=== PATIENT | female | born 1970 | race Two or more races ===

== ENCOUNTER 2016-05-21 21:40 | Emergency (ER) | payer OTHER ==
[~2016-05-21 21:40] MED LIST: BUTA1CAP29 PO; GEMF600T PO; INSU100I17 SQ; INSU100V13 SQ; ONDA4TAB10 PO; PROM25TA10 PO; SUMA50TA3 PO
[2016-05-21 21:53] VITALS: BP 167/91
--- NOTE | 2016-05-21 22:37 | PHYS DOC ---
Past Medical History Past Medical History: Diabetes-Type II, Migraines Additional Past Medical Histor: HEADACHES Past Surgical History: No Surgical History, Appendectomy Additional Past Surgical Histo: KIDNEY STONE Alcohol Use: None Drug Use: None Adult General Chief Complaint Chief Complaint: HEADACHE HPI HPI Patient is a 46 year old female who presents with complaint of headache this started this morning upon awakening. Patient states she has history of migraine headaches. Patient states that her current headache is consistent with previous episodes of migraine headache. Patient states she last had a migraine 3 days ago and was seen by her primary doctor. The patient received injection medication at that time that helped, however her symptoms unfortunately return today. Patient took ibuprofen earlier today with no relief in symptoms. Patient has had associated nausea and vomiting which is typical of her migraine headaches. Patient rates her pain currently is 10 out of 10. Patient denies any additional or unusual symptoms associated with her headache at this time. Review of Systems Review of Systems Constitutional: Denies fever or chills [] Eyes: Denies change in visual acuity, redness, or eye pain [] HENT: Denies nasal congestion or sore throat [] Respiratory: Denies cough or shortness of breath [] Cardiovascular: Denies chest pain or edema [] GI: Nausea, vomiting, denies abdominal pain, bloody stools or diarrhea [] : Denies dysuria or hematuria [] Musculoskeletal: Denies back pain or joint pain [] Integument: Denies rash or skin lesions [] Neurologic: Headache, denies focal weakness or sensory changes [] Current Medications Current Medications Current Medications Medications (Trade) Dose Ordered Sig/Ministerio Start Time Stop Time Status Last Admin Dose Admin Ketorolac Tromethamine (Toradol Im) 60 mg 1X ONCE 05/21/16 23:00 05/21/16 23:01 DC 05/21/16 22:50 60 MG Promethazine HCl (Phenergan Im) 25 mg 1X ONCE 05/21/16 23:00 05/21/16 23:01 DC 05/21/16 22:50 25 MG Allergies Allergies Allergies Coded Allergies Type Severity Reaction Last Updated Verified No Known Drug Allergies 04/01/15 No Physical Exam Physical Exam Constitutional: Alert, afebrile, appears in mild to moderate discomfort. [] HENT: Normocephalic, atraumatic, bilateral external ears normal, oropharynx moist, no oral exudates, nose normal. [] Eyes: PERRLA, EOMI, conjunctiva normal, no discharge. [] Neck: Normal range of motion, no tenderness, supple, no stridor. [] Cardiovascular:Heart rate regular rhythm, no murmur [] Lungs & Thorax: Bilateral breath sounds clear to auscultation [] Abdomen: Bowel sounds normal, soft, no tenderness, no masses, no pulsatile masses. [] Skin: Warm, dry, no erythema, no rash. [] Back: No tenderness, no CVA tenderness. [] Extremities: No tenderness, no cyanosis, no clubbing, ROM intact, no edema. [] Neurologic: Alert and oriented X 3, normal motor function, normal sensory function, no focal deficits noted. [] Current Patient Data Vital Signs Vital Signs Date Time Temp Pulse Resp B/P Pulse Ox O2 Delivery O2 Flow Rate FiO2 05/21/16 21:53 97.8 70 18 167/91 100 97.8 EKG EKG Not performed [] Radiology/Procedures Radiology/Procedures Not performed [] Course & Med Decision Making Course & Med Decision Making Pertinent Labs and Imaging studies reviewed. (See chart for details) Patient was given IM Phenergan and IM Toradol in the emergency department. On reevaluation, patient states her headache has improved. The patient was discharged with prescription for Phenergan and advised to continue on ibuprofen and Tylenol at home for treatment of headache. Advised return emergency department for any worsening symptoms. The patient and patient's family voiced understanding and in agreement with treatment plan. Dragon Disclaimer Dragon Disclaimer This electronic medical record was generated, in whole or in part, using a voice recognition dictation system. Departure Departure Impression: Primary Impression: Migraine Disposition: 01 HOME, SELF-CARE Condition: IMPROVED Referrals: DENG ROOT MD (PCP) Patient Instructions: Migraine Headache Additional Instructions: Follow-up with primary doctor in 2-3 days. Return to emergency department for any worsening symptoms. Scripts Promethazine Hcl 25 Mg Tablet1 Tab PO Q6HRS PRN NAUSEA/VOMITING #20 TAB Prov:FABI LEIGH MD 05/21/16 Problem Qualifiers Primary Impression: Migraine Migraine type: unspecified Status migrainosus presence: without status migrainosus Intractability: not intractable Qualified Code: G43.909 - Migraine, unspecified, not intractable, without status migrainosus FABI LEIGH MD 30, 2017 22:37
[2016-05-21] MEDS ORDERED: KETOROLAC TROMETHAMINE 60 MG/2 ML SYRINGE. IM ONE (23:00)
[2016-05-21] MEDS ORDERED: PROMETHAZINE IM 25 MG/ML VIAL IM ONE (23:00)
[2016-05-21] MEDS ORDERED: PROM25TA10 PO (23:31)
== END 2016-05-21 23:35 | disposition home or self-care (01) ==
LOC: ER 21:40
DX: G43.909 Migraine, unspecified, not intractable, without status migrainosus (principal); E11.9 Type 2 diabetes mellitus without complications
CPT/HCPCS: 96372; 99284; J1885; J2550

== ENCOUNTER 2016-06-12 19:39 | Emergency (ER) | payer OTHER ==
[2016-06-12] MEDS ORDERED: PROMETHAZINE 12.5 MG in IV NORMAL SALINE 50ML 50 ML IV ONE (20:45)
[2016-06-12] MEDS ORDERED: IV NORMAL SALINE 1000ML BAG 1,000 ML IV ONE (20:45)
[2016-06-12] MEDS ORDERED: KETOROLAC TROMETHAMINE 30 MG/ML INJ. IV ONE (21:00)
[2016-06-12] MEDS ORDERED: DIPHENHYDRAMINE 50 MG/ML VIAL. IVP ONE (21:00)
[2016-06-12] MEDS ORDERED: SUMA50TA3 PO (21:41)
[2016-06-12] MEDS ORDERED: PROM25TA10 PO (21:41)
--- NOTE | 2016-06-12 21:42 | PHYS DOC ---
Past Medical History Past Medical History: Diabetes-Type II, Migraines Additional Past Medical Histor: HEADACHES Past Surgical History: Appendectomy Additional Past Surgical Histo: KIDNEY STONE Alcohol Use: None Drug Use: None Adult General Chief Complaint Chief Complaint: HEADACHE HPI HPI Patient is a 46 year old female with history of diabetes type 2 and migraine headaches who presents today with a 10 out of 10 sharp frontal migraine headache that began this morning with nausea and vomiting. Patient denies this pain being the worst headache in her life. She states she's had similar headaches before. Patient is Vietnamese speaking but understands some Romansh and family member is in the ED interpreting. Review of Systems Review of Systems Constitutional: Denies fever or chills [] Eyes: Denies change in visual acuity, redness, or eye pain [] HENT: Denies nasal congestion or sore throat [] Respiratory: Denies cough or shortness of breath [] Cardiovascular: No additional information not addressed in HPI [] GI: Denies abdominal pain, nausea, vomiting, bloody stools or diarrhea [] : Denies dysuria or hematuria [] Musculoskeletal: Denies back pain or joint pain [] Integument: Denies rash or skin lesions [] Neurologic: headache, Endocrine: Denies polyuria or polydipsia [] Current Medications Current Medications Current Medications Medications (Trade) Dose Ordered Sig/Ministerio Start Time Stop Time Status Last Admin Dose Admin Diphenhydramine HCl 25 mg 25 mg 1X ONCE 06/12/16 21:00 06/12/16 21:01 DC 06/12/16 21:18 25 MG Ketorolac Tromethamine 30 mg 30 mg 1X ONCE 06/12/16 21:00 06/12/16 21:01 DC 06/12/16 21:20 30 MG Promethazine HCl/ Sodium Chloride (Phenergan/Iv Sodium Chloride 0.9% 50ml) 50.5 ml @ 101 mls/hr 1X ONCE 06/12/16 20:45 06/12/16 21:14 DC 06/12/16 21:21 101 MLS/HR Sodium Chloride (Iv Sodium Chloride 0.9% 1000ml Bag) 1,000 ml @ 1,000 mls/hr 1X ONCE 06/12/16 20:45 06/12/16 21:44 06/12/16 21:18 1,000 MLS/HR Allergies Allergies Allergies Coded Allergies Type Severity Reaction Last Updated Verified No Known Drug Allergies 04/01/15 No Physical Exam Physical Exam Constitutional: Well developed, well nourished, no acute distress, non-toxic appearance. [] HENT: Normocephalic, atraumatic, bilateral external ears normal, oropharynx moist, no oral exudates, nose normal. [] Eyes: PERRLA, EOMI, conjunctiva normal, no discharge. [] Neck: Normal range of motion, no tenderness, supple, no stridor. [] Cardiovascular:Heart rate regular rhythm, no murmur [] Lungs & Thorax: Bilateral breath sounds clear to auscultation [] Abdomen: Bowel sounds normal, soft, no tenderness, no masses, no pulsatile masses. [] Skin: Warm, dry, no erythema, no rash. [] Back: No tenderness, no CVA tenderness. [] Extremities: No tenderness, no cyanosis, no clubbing, ROM intact, no edema. [] Neurologic: Alert and oriented X 3, normal motor function, normal sensory function, no focal deficits noted. Cranial nerves II through XII intact Psychologic: Affect normal, judgement normal, mood normal. [] Current Patient Data Vital Signs Vital Signs Date Time Temp Pulse Resp B/P Pulse Ox O2 Delivery O2 Flow Rate FiO2 06/12/16 21:17 68 16 152/85 99 06/12/16 19:54 97.9 Room Air 97.9 EKG EKG [] Radiology/Procedures Radiology/Procedures [] Course & Med Decision Making Course & Med Decision Making Pertinent Labs and Imaging studies reviewed. (See chart for details) Patient is in the ED with a migraine headache with nausea vomiting that began this morning. She was given promethazine, Benadryl and Toradol in the ED with very good relief. Discharged with Imitrex and promethazine. Follow-up with PCP on Wednesday. Provided return precautions and discharged in stable condition. Dragon Disclaimer Dragon Disclaimer This electronic medical record was generated, in whole or in part, using a voice recognition dictation system. Departure Departure Impression: Primary Impression: Migraine headache Disposition: HOME, SELF-CARE Condition: STABLE Referrals: DENG ROOT MD (PCP) Follow-up with your doctor on Wednesday Patient Instructions: Migraine Headache Additional Instructions: You were seen for migraine headache. Take the prescribed medicines as needed. Follow-up with your doctor on Wednesday as scheduled. Come back to the ED symptoms worsen. Scripts Sumatriptan Succinate (Imitrex)50 Mg Tablet1 Tab PO UD #9 TAB Ref 1 Prov:OCTAVIO HURT APRN 06/12/16 Promethazine Hcl 25 Mg Tablet1 Tab PO PRN Q6HRS #20 TAB Prov:OCTAVIO HURT APRN 06/12/16 Problem Qualifiers Primary Impression: Migraine headache Migraine type: without aura Status migrainosus presence: without status migrainosus Intractability: not intractable Qualified Code: G43.009 - Migraine without aura, not intractable, without status migrainosus OCTAVIO HURT APRN Jun 12, 2016 21:42
[2016-06-12 22:16] VITALS: BP 136/77
== END 2016-06-12 22:17 | disposition home or self-care (01) ==
LOC: ER 19:39
DX: G43.909 Migraine, unspecified, not intractable, without status migrainosus (principal); E11.9 Type 2 diabetes mellitus without complications
CPT/HCPCS: 96365; 96375; 99284; J1200; J1885; J2550; J7030

== ENCOUNTER 2016-08-09 22:20 | Emergency (ER) | payer OTHER ==
[~2016-08-09] VITALS: Ht 157.5 cm; Wt 70.3 kg
[2016-08-09 23:32] VITALS: BP 134/80
[2016-08-09] MEDS ORDERED: PROCHLORPERAZINE 10 MG/2 ML VIAL. IV ONE (23:45)
[2016-08-09] MEDS ORDERED: IV NORMAL SALINE 1000ML BAG 1,000 ML IV ONE (23:45)
[2016-08-09] MEDS ORDERED: KETOROLAC TROMETHAMINE 30 MG/ML INJ. IV ONE (23:45)
[2016-08-09] MEDS ORDERED: diphenhydrAMINE 50 MG/ML VIAL IVP ONE (23:45)
[2016-08-10 00:07] LABS: BILIRUBIN,URINE NEGATIVE (NEG); GLUCOSE,URINE >=1000 mg/dL (NEG); NITRITE,URINE NEGATIVE (NEG); PH,URINE 5.5; PROTEIN,URINE >=300 mg/dL (NEG-TRACE); UROBILINOGEN,URINE 0.2 mg/dL (0.2 mg/dL)
[2016-08-10 00:26] LABS: BACTERIA,URINE FEW /HPF (0-FEW); RBC,URINE TNTC /HPF (0-2); SQUAMOUS EPITHELIAL CELL,UR FEW /LPF; WBC,URINE OCC /HPF (0-4)
--- NOTE | 2016-08-10 01:24 | PHYS DOC ---
Past Medical History Past Medical History: Diabetes-Type II, Migraines Additional Past Medical Histor: HEADACHES Past Surgical History: Appendectomy Additional Past Surgical Histo: KIDNEY STONE Alcohol Use: None Drug Use: None Adult General Chief Complaint Chief Complaint: HEADACHE HPI HPI Patient is a 46 year old female who presents with headache. The patient reports she woke up this morning with throbbing/aching frontal headache typical of her usual migraine. She states pain did not improve with "migraine medication" prescribed by her doctor, unsure of the name of medication. She reports photophobia/phonophobia, nausea. Denies fevers/chills, neck stiffness, vomiting, vision changes, extremity numbness/weakness. She has history of previous ED visit for migraine. She is Frisian speaking, son speaks Dominican, is present at bedside & assisting with history. Review of Systems Review of Systems Constitutional: Denies fever or chills Eyes: Denies change in visual acuity HENT: Denies nasal congestion or sore throat Respiratory: Denies cough or shortness of breath Cardiovascular: Denies chest pain or edema GI: Reports nausea. Denies abdominal pain, vomiting, bloody stools or diarrhea : Denies dysuria or hematuria Musculoskeletal: Denies back pain or joint pain Integument: Denies rash or skin lesions Neurologic: Reports headache, denies focal weakness or sensory changes Current Medications Current Medications Current Medications Medications (Trade) Dose Ordered Sig/Ministerio Start Time Stop Time Status Last Admin Dose Admin Diphenhydramine HCl (Benadryl) 25 mg 1X ONCE 08/09/16 23:45 08/09/16 23:46 DC 08/10/16 00:03 25 MG Ketorolac Tromethamine (Toradol) 30 mg 1X ONCE 08/09/16 23:45 08/09/16 23:46 DC 08/10/16 00:03 30 MG Prochlorperazine Edisylate (Compazine) 10 mg 1X ONCE 08/09/16 23:45 08/09/16 23:46 DC 08/10/16 00:03 10 MG Sodium Chloride 1,000 ml @ 1,000 mls/hr 1X ONCE 08/09/16 23:45 08/10/16 00:44 DC 08/09/16 00:03 1,000 MLS/HR Allergies Allergies Allergies Coded Allergies Type Severity Reaction Last Updated Verified No Known Drug Allergies 04/01/15 No Physical Exam Physical Exam Constitutional: Well developed, well nourished, no acute distress, non-toxic appearance. Resting comfortably in a dark room. HENT: Normocephalic, atraumatic, bilateral external ears normal, oropharynx moist, no tonsillar enlargement/exudate, nose normal. Eyes: PERRLA, EOMI, conjunctiva normal, no discharge. Neck: supple, no stridor. no nuchal rigidity Cardiovascular: RRR, no murmurs, no edema. Lungs & Thorax: LCTAB, no wheezing, no respiratory distress. Abdomen: soft, nontender, nondistended. Skin: Warm, dry, no erythema, no rash. Back: No tenderness. Extremities: No tenderness, no edema. Neurologic: Alert and oriented X 3, CN2-12 grossly intact, symmetric strength/ sensation to UE & LE, no focal deficits noted. Psychologic: Affect normal, judgement normal, mood normal. Current Patient Data Vital Signs Vital Signs Date Time Temp Pulse Resp B/P (MAP) Pulse Ox O2 Delivery O2 Flow Rate FiO2 08/09/16 23:32 98.1 85 16 99 Room Air 98.1 Lab Values Laboratory Tests Test 08/09/16 23:03 08/09/16 23:45 POC Urine HCG, Qualitative Hcg negative (Negative) Urine Collection Type Unknown Urine Color Yellow Urine Clarity Clear Urine pH 5.5 Urine Specific [place] >=1.030 Urine Protein >=300 mg/dL (NEG-TRACE) Urine Glucose (UA) >=1000 mg/dL (NEG) Urine Ketones (Stick) 15 mg/dL (NEG) Urine Blood Large (NEG) Urine Nitrite Negative (NEG) Urine Bilirubin Negative (NEG) Urine Urobilinogen Dipstick 0.2 mg/dL (0.2 mg/dL) Urine Leukocyte Esterase Negative (NEG) Urine RBC Tntc /HPF (0-2) Urine WBC Occ /HPF (0-4) Urine Squamous Epithelial Cells Few /LPF Urine Bacteria Few /HPF (0-FEW) Urine Hyaline Casts Occasional /HPF Urine Mucus Slight /LPF EKG EKG [] Radiology/Procedures Radiology/Procedures [] Course & Med Decision Making Course & Med Decision Making Pertinent Labs and Imaging studies reviewed. (See chart for details) The patient presents with migraine headache with typical symptoms. Gave IV fluids, toradol, benadryl, compazine. She felt better after treatment, requested discharge home. Recommend rest, PO hydration, continue home meds, follow up with primary care this week. Come back for worst headache of life, sudden onset severe headache, uncontrolled vomiting, focal neuro deficit, any otherwise worsening condition. Discharged home in stable & improved condition. [] Dragon Disclaimer Dragon Disclaimer This electronic medical record was generated, in whole or in part, using a voice recognition dictation system. Departure Departure Impression: Primary Impression: Migraine headache Disposition: HOME, SELF-CARE Condition: IMPROVED Referrals: DENG ROOT MD (PCP) Patient Instructions: Migraine Headache, [id number] Additional Instructions: You were seen in the emergency department today for migraine. Symptoms improved with treatment here. Please rest, drink fluids, take home medications as needed. Follow-up with primary care physician in one week. Return to the emergency department for worst headache of your life, sudden onset severe headache, uncontrolled vomiting, trouble moving arms or legs, any otherwise worsening condition. LAZARO DRAKE MD Aug 10, 2016 01:24
== END 2016-08-10 01:38 | disposition home or self-care (01) ==
LOC: ER 22:20
DX: G43.909 Migraine, unspecified, not intractable, without status migrainosus (principal); E11.9 Type 2 diabetes mellitus without complications; Z90.49 Acquired absence of other specified parts of digestive tract; Z87.442 Personal history of urinary calculi
CPT/HCPCS: 81001; 81025; 96361; 96374; 96375; 99285; J0780; J1200; J1885; J7030

== ENCOUNTER 2016-09-08 22:46 | Emergency (ER) | payer OTHER ==
[~2016-09-08] VITALS: Ht 162.6 cm; Wt 70.3 kg
[2016-09-08 23:30] LABS: BILIRUBIN,URINE NEGATIVE (NEG); GLUCOSE,URINE NEGATIVE (NEG); NITRITE,URINE NEGATIVE (NEG); PH,URINE 5.5; PROTEIN,URINE 30 mg/dL (NEG-TRACE); UROBILINOGEN,URINE 0.2 mg/dL (0.2 mg/dL)
[2016-09-08] MEDS ORDERED: KETOROLAC TROMETHAMINE 30 MG/ML INJ. IV ONE (23:30)
[2016-09-08] MEDS ORDERED: diphenhydrAMINE 50 MG/ML VIAL IVP ONE (23:30)
[2016-09-08] MEDS ORDERED: PROCHLORPERAZINE 10 MG/2 ML VIAL. IV ONE (23:30)
[2016-09-08] MEDS ORDERED: IV NORMAL SALINE 1000ML BAG 1,000 ML IV ONE (23:30)
[2016-09-08 23:39] LABS: BACTERIA,URINE MODERATE /HPF (0-FEW); RBC,URINE >40 /HPF (0-2); SQUAMOUS EPITHELIAL CELL,UR MOD /LPF
--- NOTE | 2016-09-09 01:03 | PHYS DOC ---
Past Medical History Past Medical History: Diabetes-Type II, Migraines Additional Past Medical Histor: HEADACHES Past Surgical History: Appendectomy Additional Past Surgical Histo: KIDNEY STONE Alcohol Use: None Drug Use: None Adult General Chief Complaint Chief Complaint: HEADACHE HPI HPI Patient is a 46 year old female who presents with migraine headache. She reports 1 day history of pain to the top of her head which is throbbing/aching. Not sudden in onset, not the worst headache of her life, typical of her usual migraine. She denies fevers/chills, neck stiffness, vision changes, photophobia /phonophobia, nausea, vomiting, extremity numbness/weakness. She took ibuprofen at home without relief. History of many previous visits for similar complaints. 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 Review of Systems Review of Systems Constitutional: Denies fever or chills Eyes: Denies change in visual acuity HENT: Denies nasal congestion or sore throat Respiratory: Denies cough or shortness of breath Cardiovascular: Denies chest pain GI: Denies abdominal pain, nausea, vomiting Musculoskeletal: Denies back pain or joint pain Integument: Denies rash Neurologic: Reports headache, denies focal weakness or sensory changes Current Medications Current Medications Current Medications Medications (Trade) Dose Ordered Sig/Ministerio Start Time Stop Time Status Last Admin Dose Admin Diphenhydramine HCl (Benadryl) 25 mg 1X ONCE 09/08/16 23:30 09/08/16 23:31 DC 09/08/16 23:31 25 MG Ketorolac Tromethamine (Toradol) 30 mg 1X ONCE 09/08/16 23:30 09/08/16 23:31 DC 09/08/16 23:31 30 MG Prochlorperazine Edisylate (Compazine) 10 mg 1X ONCE 09/08/16 23:30 09/08/16 23:31 DC 09/08/16 23:31 10 MG Sodium Chloride 1,000 ml @ 1,000 mls/hr 1X ONCE 09/08/16 23:30 09/09/16 00:29 DC 09/08/16 23:32 1,000 MLS/HR Allergies Allergies Allergies Coded Allergies Type Severity Reaction Last Updated Verified No Known Drug Allergies 04/01/15 No Physical Exam Physical Exam Constitutional: Well developed, well nourished, no acute distress, non-toxic appearance. HENT: Normocephalic, atraumatic, bilateral external ears normal, oropharynx moist, nose normal. Eyes: PERRLA, EOMI, conjunctiva normal, no discharge. Neck: supple, no stridor. no meningismus Cardiovascular: RRR, no murmurs, no edema. Lungs & Thorax: LCTAB, no wheezing, no respiratory distress. Abdomen: soft, nontender, nondistended. Skin: Warm, dry, no erythema, no rash. Back: No tenderness. Extremities: No tenderness, no edema. Neurologic: Alert and oriented X 3, CN2-12 grossly intact, symmetric strength/ sensation to UE & LE, no focal deficits noted. Psychologic: Affect normal, judgement normal, mood normal. Current Patient Data Vital Signs Vital Signs Date Time Temp Pulse Resp B/P (MAP) Pulse Ox O2 Delivery O2 Flow Rate FiO2 09/09/16 01:05 145/79 (101) 100 Room Air 09/08/16 23:22 98.0 72 16 98.0 Lab Values Laboratory Tests Test 09/08/16 22:26 09/08/16 23:06 POC Urine HCG, Qualitative Hcg negative (Negative) Urine Collection Type Unknown Urine Color Yellow Urine Clarity Clear Urine pH 5.5 Urine Specific [place] 1.020 Urine Protein 30 mg/dL (NEG-TRACE) Urine Glucose (UA) Negative mg/dL (NEG) Urine Ketones (Stick) Negative mg/dL (NEG) Urine Blood Large (NEG) Urine Nitrite Negative (NEG) Urine Bilirubin Negative (NEG) Urine Urobilinogen Dipstick 0.2 mg/dL (0.2 mg/dL) Urine Leukocyte Esterase Trace (NEG) Urine RBC >40 /HPF (0-2) Urine WBC 1-4 /HPF (0-4) Urine Squamous Epithelial Cells Mod /LPF Urine Bacteria Moderate /HPF (0-FEW) Urine Mucus Mod /LPF EKG EKG [] Radiology/Procedures Radiology/Procedures [] Course & Med Decision Making Course & Med Decision Making Pertinent Labs and Imaging studies reviewed. (See chart for details) Patient presents with migraine headache. Well appearing, stable vitals, normal neuro exam. Negative UCG. She has blood in her urine consistent with menstrual period which she reports. Gave IV fluids, compazine, benadryl, toradol. She felt better after treatment here. Recommend rest, PO hydration, tylenol/ibuprofen for headache, follow up with PCP in 2-3 days if not improving. Come back for worst headache of her life, sudden onset severe headache, focal neuro deficit, any otherwise worsening condition. Discharged home in stable & improved condition. [] Dragon Disclaimer Dragon Disclaimer This electronic medical record was generated, in whole or in part, using a voice recognition dictation system. Departure Departure Impression: Primary Impression: Migraine headache Disposition: HOME, SELF-CARE Condition: IMPROVED Referrals: DENG ROOT MD (PCP) Patient Instructions: Migraine Headache, [id number] Additional Instructions: You were seen in the emergency department today for headache. Please continue home treatment. Follow-up with primary care physician in 2-3 days. Come back for sudden severe headache, worst headache of your life, numbness or weakness in arms or legs, any otherwise worsening condition. LAZARO DRAKE MD Sep 09, 2016 01:03
[2016-09-09 01:05] VITALS: BP 145/79
== END 2016-09-09 01:16 | disposition home or self-care (01) ==
LOC: ER 22:46
DX: G43.909 Migraine, unspecified, not intractable, without status migrainosus (principal); E11.9 Type 2 diabetes mellitus without complications; Z90.49 Acquired absence of other specified parts of digestive tract; Z87.442 Personal history of urinary calculi
CPT/HCPCS: 81001; 81025; 87086; 96361; 96374; 96375; 99285; J0780; J1200; J1885; J7030

== ENCOUNTER 2016-09-11 22:29 | Emergency (ER) | payer OTHER ==
[~2016-09-11] VITALS: Ht 152.4 cm; Wt 68.0 kg
[2016-09-11 22:59] VITALS: BP 147/70
[2016-09-12] MEDS ORDERED: IBUP-1007 PO (00:27)
--- NOTE | 2016-09-12 00:27 | PHYS DOC ---
Past Medical History Past Medical History: Diabetes-Type II, Migraines Additional Past Medical Histor: HEADACHES Past Surgical History: Appendectomy Additional Past Surgical Histo: KIDNEY STONE Alcohol Use: None Drug Use: None Adult General Chief Complaint Chief Complaint: HEADACHE HPI HPI Patient is a 46 year old female who presents today complaining of a headache since 3 PM. Patient reports she's had similar headaches in the past. Patient reports usually she takes ibuprofen or Tylenol however she has run out of her ibuprofen did not take anything at all today. For headache. Patient presents here today complaining of pain to her head that's in the frontal area that is typical to her prior headaches. Patient has any fevers shakes chills nausea vomiting diarrhea. Patient denies any chest pain or shortness of breath. Patient has any abdominal pain. Patient reports that she's had a little bit of cough cold runny nose. Patient has a history of diabetes hypertension kidney stones and has had an appendectomy in the past. Patient does not smoke drink or do any drugs. Patient is not allergic to any medications. Patient denies any weakness or upper or lower 70s. Patient has any sensory deficits. Patient has any double vision or blurred vision. Patient says family reports no change in speech or facial asymmetries. Patient's physical exam the ER is unremarkable. Patient's alert awake and oriented 3. Patient has no papilledema. Patient's pupils were equally round and reactive to light. Extraocular motions were intact. Patient's cranial nerves to 12 are intact. Patient has good strength upper and lower extremities 5 out of 5. Liver clear. Patient's oropharynx are normal. Assessment and plan is a 46-year-old female who presents here today with a headache. Patient has not tried any remedies at home prior to arrival to the ER. Patient be given a dose of Toradol Benadryl and Reglan to assist her with her migraine. Patient be discharged home in stable condition. Patient was given a prescription for ibuprofen and will be instructed to follow-up with her primary care physician. Current Medications Medications (Trade) Dose Ordered Sig/Ministerio Route PRN Reason Start Time Stop Time Status Last Admin Dose Admin Ketorolac Tromethamine (Toradol) 15 mg 1X ONCE IV 09/12/16 00:30 09/12/16 00:31 Diphenhydramine HCl (Benadryl) 50 mg 1X ONCE IVP 09/12/16 00:30 7/22/17 00:31 Metoclopramide HCl (Reglan) 10 mg 1X ONCE IV 09/12/16 00:30 09/12/16 00:31 Review of Systems Review of Systems Constitutional: Denies fever or chills [] Eyes: Denies change in visual acuity, redness, or eye pain [] HENT: Denies nasal congestion or sore throat [] All other review systems are negative except as documented in the history of present illness portion. Current Medications Current Medications Current Medications Medications (Trade) Dose Ordered Sig/Ministerio Start Time Stop Time Status Last Admin Dose Admin Diphenhydramine HCl (Benadryl) 50 mg 1X ONCE 09/12/16 00:30 09/12/16 00:31 DC 09/12/16 00:31 50 MG Ketorolac Tromethamine (Toradol) 15 mg 1X ONCE 09/12/16 00:30 09/12/16 00:31 DC 09/12/16 00:31 15 MG Metoclopramide HCl (Reglan) 10 mg 1X ONCE 09/12/16 00:30 09/12/16 00:31 DC 09/12/16 00:31 10 MG Allergies Allergies Allergies Coded Allergies Type Severity Reaction Last Updated Verified No Known Drug Allergies 04/01/15 No Physical Exam Physical Exam Constitutional: Well developed, well nourished, no acute distress, non-toxic appearance. [] HENT: Normocephalic, atraumatic, bilateral external ears normal, oropharynx moist, no oral exudates, nose normal. [] Eyes: PERRLA, EOMI, conjunctiva normal, no discharge. [] Neck: Normal range of motion, no tenderness, supple, no stridor. [] Cardiovascular:Heart rate regular rhythm, Lungs & Thorax: Bilateral breath sounds clear to auscultation [] Abdomen: Bowel sounds normal, soft, no tenderness, no masses, no pulsatile masses. [] Skin: Warm, dry Back: No tenderness, no CVA tenderness. [] Extremities: No tenderness, no cyanosis, Neurologic: Alert and oriented X 3, normal motor function, normal sensory function, no focal deficits noted. [] Current Patient Data Vital Signs Vital Signs Date Time Temp Pulse Resp B/P (MAP) Pulse Ox O2 Delivery O2 Flow Rate FiO2 09/11/16 22:59 97.7 76 16 100 Room Air 97.7 EKG EKG [] Radiology/Procedures Radiology/Procedures [] Course & Med Decision Making Course & Med Decision Making Pertinent Labs and Imaging studies reviewed. (See chart for details) [] Dragon Disclaimer Dragon Disclaimer This electronic medical record was generated, in whole or in part, using a voice recognition dictation system. Departure Departure Impression: Primary Impression: Migraine headache Disposition: HOME, SELF-CARE Condition: STABLE Referrals: DENG ROOT MD (PCP) Patient Instructions: General Headache Without Cause Scripts Ibuprofen (IBUPROFEN) 600 Mg Tablet 600 MG PO PRN Q6HRS Y for PAIN, #20 TAB Prov: LIAT CHURCHILL MD 09/12/16 LIAT CHURCHILL MD Sep 12, 2016 00:27
[2016-09-12] MEDS ORDERED: KETOROLAC 15 MG/ML VIAL. IV ONE (00:30)
[2016-09-12] MEDS ORDERED: METOCLOPRAMIDE HCL 10 MG/2 ML VIAL. IV ONE (00:30)
[2016-09-12] MEDS ORDERED: diphenhydrAMINE 50 MG/ML VIAL IVP ONE (00:30)
== END 2016-09-12 01:22 | disposition home or self-care (01) ==
LOC: ER 22:29
DX: G43.909 Migraine, unspecified, not intractable, without status migrainosus (principal); E11.9 Type 2 diabetes mellitus without complications; I10 Essential (primary) hypertension; Z90.49 Acquired absence of other specified parts of digestive tract; Z87.442 Personal history of urinary calculi
CPT/HCPCS: 96374; 96375; 99284; J1200; J1885; J2765

== ENCOUNTER 2016-10-03 15:49 | Emergency (ER) | payer OTHER ==
[~2016-10-03] VITALS: Ht 165.1 cm; Wt 68.0 kg
[~2016-10-03 15:49] MED LIST changes: +IBUP-1007 PO
[2016-10-03] MEDS ORDERED: diphenhydrAMINE 50 MG/ML VIAL IVP ONE (16:15)
[2016-10-03] MEDS ORDERED: KETOROLAC TROMETHAMINE 30 MG/ML INJ. IV ONE (16:15)
[2016-10-03] MEDS ORDERED: PROCHLORPERAZINE 10 MG/2 ML VIAL. IV ONE (16:15)
[2016-10-03] MEDS ORDERED: IV NORMAL SALINE 1000ML BAG 1,000 ML IV ONE (16:15)
[2016-10-03 16:34] LABS: BILIRUBIN,URINE NEGATIVE (NEG); GLUCOSE,URINE NEGATIVE (NEG); NITRITE,URINE NEGATIVE (NEG); PH,URINE 5.5; PROTEIN,URINE 30 mg/dL (NEG-TRACE); UROBILINOGEN,URINE 0.2 mg/dL (0.2 mg/dL)
[2016-10-03 16:43] LABS: BACTERIA,URINE MODERATE /HPF (0-FEW); RBC,URINE 0 /HPF (0-2); SQUAMOUS EPITHELIAL CELL,UR MANY /LPF; WBC,URINE OCC /HPF (0-4)
--- NOTE | 2016-10-03 17:29 | PHYS DOC ---
Past Medical History Past Medical History: Diabetes-Type II, Migraines Additional Past Medical Histor: HEADACHES Past Surgical History: Appendectomy Additional Past Surgical Histo: KIDNEY STONE Alcohol Use: None Drug Use: None Adult General Chief Complaint Chief Complaint: HEADACHE HPI HPI Patient is a 46 year old female who presents with headache. Patient has throbbing/aching frontal headache since waking up this morning. Not sudden in onset, not worst headache of her life. Similar to previous migraine headache. Associated with nausea. Denies fevers or chills, neck stiffness, vision changes , extremity numbness or weakness. Took ibuprofen at home without relief of symptoms. Patient is non-Sinhala speaking, accompanied by family who are interpreting. Review of Systems Review of Systems Constitutional: Denies fever or chills Eyes: Denies change in visual acuity HENT: Denies nasal congestion or sore throat Respiratory: Denies cough or shortness of breath Cardiovascular: Denies chest pain or edema GI: Reports nausea. Denies abdominal pain, vomiting Musculoskeletal: Denies back pain or joint pain Integument: Denies rash or skin lesions Neurologic: Reports headache, denies focal weakness or sensory changes Current Medications Current Medications Current Medications Medications (Trade) Dose Ordered Sig/Ministerio Start Time Stop Time Status Last Admin Dose Admin Diphenhydramine HCl (Benadryl) 25 mg 1X ONCE 10/03/16 16:15 10/03/16 16:16 DC 10/03/16 16:40 25 MG Ketorolac Tromethamine (Toradol) 30 mg 1X ONCE 10/03/16 16:15 10/03/16 16:16 DC 10/03/16 16:41 30 MG Prochlorperazine Edisylate (Compazine) 10 mg 1X ONCE 10/03/16 16:15 10/03/16 16:16 DC 10/03/16 16:45 10 MG Sodium Chloride 1,000 ml @ 1,000 mls/hr 1X ONCE 10/03/16 16:15 10/03/16 17:14 DC 10/03/16 16:41 1,000 MLS/HR Allergies Allergies Allergies Coded Allergies Type Severity Reaction Last Updated Verified No Known Drug Allergies 04/01/15 No Physical Exam Physical Exam Constitutional: Well developed, well nourished, no acute distress, non-toxic appearance. HENT: Normocephalic, atraumatic, bilateral external ears normal, oropharynx moist, nose normal. Eyes: PERRLA, EOMI, conjunctiva normal, no discharge. Neck: supple, no stridor. No meningismus Cardiovascular: RRR, no murmurs, no edema. Lungs & Thorax: LCTAB, no wheezing, no respiratory distress. Abdomen: soft, nontender, nondistended. Skin: Warm, dry, no erythema, no rash. Back: No tenderness. Extremities: No tenderness, no edema. Neurologic: Alert and oriented X 3, cranial nerves II through XII grossly intact , symmetric strength and sensation upper and lower extremities no focal deficits noted. Psychologic: Affect normal, judgement normal, mood normal. Current Patient Data Vital Signs Vital Signs Date Time Temp Pulse Resp B/P (MAP) Pulse Ox O2 Delivery O2 Flow Rate FiO2 10/03/16 17:33 66 135/77 (96) 10/03/16 16:10 97.8 22 99 Room Air 97.8 Lab Values Laboratory Tests Test 10/03/16 14:25 10/03/16 15:34 Urine Collection Type Void Urine Color Yellow Urine Clarity Clear Urine pH 5.5 Urine Specific [place] 1.025 Urine Protein 30 mg/dL (NEG-TRACE) Urine Glucose (UA) Negative mg/dL (NEG) Urine Ketones (Stick) Negative mg/dL (NEG) Urine Blood Negative (NEG) Urine Nitrite Negative (NEG) Urine Bilirubin Negative (NEG) Urine Urobilinogen Dipstick 0.2 mg/dL (0.2 mg/dL) Urine Leukocyte Esterase Negative (NEG) Urine RBC 0 /HPF (0-2) Urine WBC Occ /HPF (0-4) Urine Squamous Epithelial Cells Many /LPF Urine Bacteria Moderate /HPF (0-FEW) Urine Mucus Marked /LPF POC Urine HCG, Qualitative Hcg negative (Negative) EKG EKG [] Radiology/Procedures Radiology/Procedures [] Course & Med Decision Making Course & Med Decision Making Pertinent Labs and Imaging studies reviewed. (See chart for details) The patient presented with headache similar to previous migraines. No focal deficits on exam. Vitals stable. UA unremarkable for any abnormality. Gave IV fluids, Toradol, Compazine, and Benadryl. Patient's symptoms improved and she was comfortable with discharge home. Recommend rest, by mouth hydration, Tylenol or ibuprofen for headache. Follow-up with primary care physician in 2-3 days. Return to the emergency department for worst headache of her life, sudden onset severe headache, uncontrolled vomiting, focal neurologic deficit, any otherwise worsening condition. Discharged home in stable and improved condition. [] Dragon Disclaimer Dragon Disclaimer This electronic medical record was generated, in whole or in part, using a voice recognition dictation system. Departure Departure Impression: Primary Impression: Migraine headache Disposition: 01 HOME, SELF-CARE Condition: STABLE Referrals: DENG ROOT MD (PCP) Patient Instructions: Migraine Headache, [facility] Additional Instructions: You were seen in the emergency department today for migraine headache. Please rest, drink fluids to stay hydrated, take Tylenol or ibuprofen for headache. Follow-up with primary care physician in 2-3 days. Return to the emergency department for worst headache of your life, sudden onset of severe headache, uncontrolled vomiting, difficulty moving arms or legs, any otherwise worsening condition. LAZARO DRAKE MD Oct 03, 2016 17:29
[2016-10-03 17:33] VITALS: BP 135/77
== END 2016-10-03 18:01 | disposition home or self-care (01) ==
LOC: ER 15:49
DX: G43.909 Migraine, unspecified, not intractable, without status migrainosus (principal); E11.9 Type 2 diabetes mellitus without complications
CPT/HCPCS: 81001; 81025; 87086; 96361; 96374; 96375; 99284; J0780; J1200; J1885; J7030

== ENCOUNTER 2017-01-04 22:52 | Emergency (ER) | payer OTHER ==
[~2017-01-04] VITALS: Ht 167.6 cm; Wt 72.6 kg
[2017-01-04 23:56] LABS: BASO # 0.1 x10^3/uL (0.0-0.2); BASO % 1 % (0-3); EOS % 3 % (0-3); HEMATOCRIT 41.2 % (36.0-47.0); HEMOGLOBIN 13.8 g/dL (12.0-15.5); LYMPH % 40 % (24-48); MEAN CORPUSCULAR HEMOGLOBIN 29 pg (25-35); MEAN CORPUSCULAR HGB CONC 34 g/dL (31-37); MEAN CORPUSCULAR VOLUME 85 fL (79-100); MONO % 6 % (0-9); NEUT % 50 % (31-73); PLATELET COUNT 253 x10^3/uL (140-400); RED BLOOD COUNT 4.84 x10^6/uL (3.50-5.40); RED CELL DISTRIBUTION WIDTH 13.8 % (11.5-14.5); WHITE BLOOD COUNT 10.1 x10^3/uL (4.0-11.0)
[2017-01-05 00:03] VITALS: BP 130/61
[2017-01-05 00:10] LABS: CALCIUM 9.4 mg/dL (8.5-10.1); CREATININE 0.7 mg/dL (0.6-1.0); GFR 90.9; POTASSIUM 3.8 mmol/L (3.5-5.1)
[2017-01-05 00:15] LABS: ALBUMIN 3.7 g/dL (3.4-5.0); ALBUMIN/GLOBULIN RATIO 0.9 (1.0-1.7); TOTAL BILIRUBIN 0.3 mg/dL (0.2-1.0)
[2017-01-05] MEDS ORDERED: IV NORMAL SALINE 1000ML BAG 1,000 ML IV ONE (00:30)
[2017-01-05] MEDS ORDERED: KETOROLAC 15 MG/ML VIAL. IV ONE (00:30)
[2017-01-05] MEDS ORDERED: METOCLOPRAMIDE HCL 10 MG/2 ML VIAL. IV ONE (00:30)
[2017-01-05 00:40] LABS: BILIRUBIN,URINE NEGATIVE (NEG); GLUCOSE,URINE 100 mg/dL (NEG); NITRITE,URINE NEGATIVE (NEG); PH,URINE 5.5; PROTEIN,URINE 30 mg/dL (NEG-TRACE); UROBILINOGEN,URINE 0.2 mg/dL (0.2 mg/dL)
--- NOTE | 2017-01-05 00:43 | RAD ---
RS Compliance Statement: One or more of the following individualized dose reduction techniques were utilized for this examination: 1. Automated exposure control 2. Adjustment of the mA and/or kV according to patient size 3. Use of iterative reconstruction technique CT head without contrast 01/05/2017 12:22 AM INDICATION: Headache COMPARISON: None available TECHNIQUE: Multiple axial CT images of the head were obtained from skull base through the vertex without intravenous contrast. FINDINGS: Head: Ventricles, sulci and basal cisterns are within normal limits. There is no hydrocephalus. Turcios-white matter differentiation is normal. There is no acute intracranial hemorrhage. There is no mass, mass effect or midline shift. Posterior fossa is normal in appearance. Visualized portions of the orbits are normal. Paranasal sinuses are well aerated. Mastoid air cells are well aerated. Scalp and calvaria are normal. IMPRESSION: No acute intracranial hemorrhage. Electronically signed by: Kalyn Dempsey MD (01/05/2017 12:39 AM) [facility]
[2017-01-05 00:47] LABS: BACTERIA,URINE MODERATE /HPF (0-FEW); SQUAMOUS EPITHELIAL CELL,UR MOD /LPF
[2017-01-05] MEDS ORDERED: NAPR500T PO (01:07)
--- NOTE | 2017-01-05 01:07 | PHYS DOC ---
Past Medical History Past Medical History: Diabetes-Type II, Migraines Additional Past Medical Histor: HEADACHES Past Surgical History: Appendectomy Additional Past Surgical Histo: KIDNEY STONE Alcohol Use: None Drug Use: None Adult General Chief Complaint Chief Complaint: HEADACHE HPI HPI Patient is a 46 year old female who presents here today complaining of a headache for 5 days. Patient reports that she's had headaches in the past and at this feels similar to prior headaches. Patient has any fevers shakes chills. Patient is complaining of nausea and vomiting times one. Patient does complain of diarrhea. Patient has any abdominal pain. Patient has any dysuria frequency urgency. Patient's last menstrual period was 5 days ago. Patient has any double vision or blurred vision. Patient has any weakness to her upper or lower 70s. Patient has any double vision. Patient reports she has a history of diabetes and hypertension as well as kidney stones. Patient is status post appendectomy. Patient has no history of coronary disease, lung problems, or strokes. Patient does not smoke drink or do any drugs. Review of systems: Constitutional: Denies fever or chills Eyes: Denies change in visual acuity, redness, or eye pain HENT: Denies nasal congestion or sore throat Respiratory: Denies cough or shortness of breath Physical exam Constitutional: Well developed, well nourished, no acute distress, non-toxic appearance. HENT: Normocephalic, atraumatic, bilateral external ears normal, oropharynx moist, no oral exudates, nose normal. Eyes: PERRLA, EOMI, conjunctiva normal, no discharge. Neck: Normal range of motion, no tenderness, supple, no stridor. Cardiovascular:Heart rate regular rhythm, Lungs & Thorax: Bilateral breath sounds clear to auscultation Abdomen: Bowel sounds normal, soft, no tenderness, no masses, no pulsatile masses. Skin: Warm, dry, no erythema, no rash. Back: No tenderness, no CVA tenderness. Extremities: No tenderness, no cyanosis, no clubbing, ROM intact, no edema. Neurologic: Alert and oriented X 3, normal motor function, normal sensory function, no focal deficits noted. Psychologic: Affect normal, judgement normal, mood normal. Assessment and plan This is a 46-year-old female who presents here today complaining of a migraine headache. While the ER the patient's been given adequate analgesia including Toradol, Reglan, normal saline with near complete resolution of her headache. Patient's CT scan of her head was unremarkable. Patient's CBC and chemistry drawn which did not reveal any pathology or abnormalities in her labs. Patient' s UA did not reveal any infection and she is not . Patient currently reports that she feels well and would like to go home so she get some rest. Patient is a bleeding the ER with normal gait. Patient has a nonfocal neurological exam and is nontoxic appearing prior to discharge. Patient has no evidence of subarachnoid hemorrhage, meningitis, subdural hematoma, CT scan of the head obtained revealed no acute pathology. CBC, CMP, UA unremarkable. Current Medications Current Medications Current Medications Medications (Trade) Dose Ordered Sig/Ministerio Start Time Stop Time Status Last Admin Dose Admin Ketorolac Tromethamine (Toradol) 30 mg 1X ONCE 01/05/17 00:30 01/05/17 00:31 DC 01/05/17 00:13 30 MG Metoclopramide HCl (Reglan Vial) 10 mg 1X ONCE 01/05/17 00:30 01/05/17 00:31 DC 01/05/17 00:13 10 MG Sodium Chloride 1,000 ml @ 1,000 mls/hr 1X ONCE 01/05/17 00:30 01/05/17 01:29 DC 01/05/17 00:12 1,000 MLS/HR Allergies Allergies Allergies Coded Allergies Type Severity Reaction Last Updated Verified No Known Drug Allergies 04/01/15 No Current Patient Data Vital Signs Vital Signs Date Time Temp Pulse Resp B/P (MAP) Pulse Ox O2 Delivery O2 Flow Rate FiO2 01/04/17 23:30 66 99 01/04/17 23:11 97.7 16 Room Air 97.7 Lab Values Laboratory Tests Test 01/04/17 00:00 01/04/17 23:04 01/05/17 00:04 Urine Collection Type Unknown Urine Color Yellow Urine Clarity Clear Urine pH 5.5 Urine Specific [place] 1.020 Urine Protein 30 mg/dL (NEG-TRACE) Urine Glucose (UA) 100 mg/dL (NEG) Urine Ketones (Stick) Negative mg/dL (NEG) Urine Blood Small (NEG) Urine Nitrite Negative (NEG) Urine Bilirubin Negative (NEG) Urine Urobilinogen Dipstick 0.2 mg/dL (0.2 mg/dL) Urine Leukocyte Esterase Small (NEG) Urine RBC 3-5 /HPF (0-2) Urine WBC 5-10 /HPF (0-4) Urine Squamous Epithelial Cells Mod /LPF Urine Bacteria Moderate /HPF (0-FEW) Urine Mucus Mod /LPF White Blood Count 10.1 x10^3/uL (4.0-11.0) Red Blood Count 4.84 x10^6/uL (3.50-5.40) Hemoglobin 13.8 g/dL (12.0-15.5) Hematocrit 41.2 % (36.0-47.0) Mean Corpuscular Volume 85 fL (79-100) Mean Corpuscular Hemoglobin 29 pg (25-35) Mean Corpuscular Hemoglobin Concent 34 g/dL (31-37) Red Cell Distribution Width 13.8 % (11.5-14.5) Platelet Count 253 x10^3/uL (140-400) Neutrophils (%) (Auto) 50 % (31-73) Lymphocytes (%) (Auto) 40 % (24-48) Monocytes (%) (Auto) 6 % (0-9) Eosinophils (%) (Auto) 3 % (0-3) Basophils (%) (Auto) 1 % (0-3) Neutrophils # (Auto) 5.1 x10^3uL (1.8-7.7) Lymphocytes # (Auto) 4.0 x10^3/uL (1.0-4.8) Monocytes # (Auto) 0.6 x10^3/uL (0.0-1.1) Eosinophils # (Auto) 0.3 x10^3/uL (0.0-0.7) Basophils # (Auto) 0.1 x10^3/uL (0.0-0.2) Sodium Level 134 mmol/L (136-145) L Potassium Level 3.8 mmol/L (3.5-5.1) Chloride Level 96 mmol/L (98-107) L Carbon Dioxide Level 28 mmol/L (21-32) Anion Gap 10 (6-14) Blood Urea Nitrogen 11 mg/dL (7-20) Creatinine 0.7 mg/dL (0.6-1.0) Estimated GFR (Cockcroft-Gault) 90.9 BUN/Creatinine Ratio 16 (6-20) Glucose Level 240 mg/dL (70-99) H Calcium Level 9.4 mg/dL (8.5-10.1) Total Bilirubin 0.3 mg/dL (0.2-1.0) Aspartate Amino Transferase (AST) 25 U/L (15-37) Alanine Aminotransferase (ALT) 41 U/L (14-59) Alkaline Phosphatase 77 U/L (46-116) Total Protein 8.0 g/dL (6.4-8.2) Albumin 3.7 g/dL (3.4-5.0) Albumin/Globulin Ratio 0.9 (1.0-1.7) L POC Urine HCG, Qualitative Hcg negative (Negative) Laboratory Tests 01/04/17 23:04 Laboratory Tests 01/04/17 23:04 EKG EKG [] Radiology/Procedures Radiology/Procedures [] Course & Med Decision Making Course & Med Decision Making Pertinent Labs and Imaging studies reviewed. (See chart for details) [] Dragon Disclaimer Dragon Disclaimer This electronic medical record was generated, in whole or in part, using a voice recognition dictation system. Departure Departure Impression: Primary Impression: Migraine Disposition: 01 HOME, SELF-CARE Condition: IMPROVED Referrals: DENG ROOT MD (PCP) Patient Instructions: Migraine Headache Scripts Naproxen (NAPROSYN) 500 Mg Tablet 500 MG PO BID, #20 TAB Prov: LIAT CHURCHILL MD 01/05/17 LIAT CHURCHILL MD Jan 05, 2017 01:07
== END 2017-01-05 01:32 | disposition home or self-care (01) ==
LOC: ER 22:52
DX: G43.909 Migraine, unspecified, not intractable, without status migrainosus (principal); R19.7 Diarrhea, unspecified; E11.9 Type 2 diabetes mellitus without complications; I10 Essential (primary) hypertension; Z90.49 Acquired absence of other specified parts of digestive tract; Z87.442 Personal history of urinary calculi
CPT/HCPCS: 36415; 70450; 80053; 81001; 81025; 85025; 87086; 96361; 96374; 96375; 99285; J1885; J2765; J7030

== ENCOUNTER 2017-02-11 16:17 | Emergency (ER) | payer OTHER ==
[~2017-02-11] VITALS: Ht 152.4 cm; Wt 72.6 kg
[~2017-02-11 16:17] MED LIST changes: +NAPR-683 PO
[2017-02-11] MEDS ORDERED: IV NORMAL SALINE 1000ML BAG 1,000 ML IV SCH (16:52)
[2017-02-11] MEDS ORDERED: diphenhydrAMINE 50 MG/ML VIAL IVP ONE (17:00)
[2017-02-11] MEDS ORDERED: KETOROLAC 30 MG/ML INJ. IV ONE (17:00)
[2017-02-11] MEDS ORDERED: PROCHLORPERAZINE 10 MG/2 ML VIAL. IV ONE (17:00)
--- NOTE | 2017-02-11 17:00 | PHYS DOC ---
Past Medical History Past Medical History: Diabetes-Type II, Migraines Additional Past Medical Histor: HEADACHES Past Surgical History: Appendectomy Additional Past Surgical Histo: KIDNEY STONE Alcohol Use: None Drug Use: None Adult General Chief Complaint Chief Complaint: HEADACHE HPI HPI Patient is a 46 year old female who presents with complaint of headache. Patient states that her symptoms started yesterday and it worsened throughout the day today. Patient states took ibuprofen no relief in symptoms. Patient also complaining of pain to the right shoulder that runs along the right side of her neck and into her upper shoulder. The patient rates her pain currently as 10 out of 10. Patient denies any fevers. Patient has had associated nausea. No light sensitivity. Patient has had multiple visits to the emergency department for similar symptoms. Patient denies any trauma to her right shoulder. Patient states that her shoulder pain worsens with movement at the arm. Review of Systems Review of Systems Constitutional: Denies fever or chills [] Eyes: Denies change in visual acuity, redness, or eye pain [] HENT: Denies nasal congestion or sore throat [] Respiratory: Denies cough or shortness of breath [] Cardiovascular: Denies chest pain or edema[] GI: Nausea, denies abdominal pain, vomiting, bloody stools or diarrhea [] : Denies dysuria or hematuria [] Musculoskeletal: Right shoulder pain[] Integument: Denies rash or skin lesions [] Neurologic: Headache, denies focal weakness or sensory changes [] All other systems were reviewed and found to be within normal limits, except as documented in this note. Current Medications Current Medications Current Medications Medications (Trade) Dose Ordered Sig/Ministerio Start Time Stop Time Status Last Admin Dose Admin Diphenhydramine HCl (Benadryl) 25 mg 1X ONCE 02/11/17 17:00 02/11/17 17:01 DC 02/11/17 17:15 25 MG Ketorolac Tromethamine (Toradol) 30 mg 1X ONCE 02/11/17 17:00 02/11/17 17:01 DC 02/11/17 17:12 30 MG Prochlorperazine Edisylate (Compazine) 10 mg 1X ONCE 02/11/17 17:00 02/11/17 17:01 DC 02/11/17 17:15 10 MG Sodium Chloride 1,000 ml @ 1,000 mls/hr Q1H 02/11/17 16:52 02/11/17 17:51 DC 02/11/17 17:11 1,000 MLS/HR Allergies Allergies Allergies Coded Allergies Type Severity Reaction Last Updated Verified No Known Drug Allergies 04/01/15 No Physical Exam Physical Exam Constitutional: Alert, afebrile, appears in moderate discomfort. [] HENT: Normocephalic, atraumatic, bilateral external ears normal, oropharynx moist, no oral exudates, nose normal. [] Eyes: PERRLA, EOMI, conjunctiva normal, no discharge. [] Neck: Normal range of motion, no tenderness, supple, no stridor. [] Cardiovascular:Heart rate regular rhythm, no murmur [] Lungs & Thorax: Bilateral breath sounds clear to auscultation [] Abdomen: Bowel sounds normal, soft, no tenderness, no masses, no pulsatile masses. [] Skin: Warm, dry, no erythema, no rash. [] Back: No tenderness, no CVA tenderness. [] Extremities: Tenderness to palpation along superior aspect of right shoulder traveling along trapezius muscle distribution towards right neck, ROM intact, no edema. [] Neurologic: Alert and oriented X 3, normal motor function, normal sensory function, no focal deficits noted. [] Current Patient Data Vital Signs Vital Signs Date Time Temp Pulse Resp B/P (MAP) Pulse Ox O2 Delivery O2 Flow Rate FiO2 02/11/17 16:42 97.8 69 18 128/70 (89) 97 Room Air 97.8 Lab Values Laboratory Tests Test 02/11/17 17:00 02/11/17 17:29 02/11/17 17:35 White Blood Count 11.0 x10^3/uL (4.0-11.0) Red Blood Count 4.81 x10^6/uL (3.50-5.40) Hemoglobin 14.1 g/dL (12.0-15.5) Hematocrit 41.4 % (36.0-47.0) Mean Corpuscular Volume 86 fL (79-100) Mean Corpuscular Hemoglobin 29 pg (25-35) Mean Corpuscular Hemoglobin Concent 34 g/dL (31-37) Red Cell Distribution Width 13.1 % (11.5-14.5) Platelet Count 243 x10^3/uL (140-400) Neutrophils (%) (Auto) 55 % (31-73) Lymphocytes (%) (Auto) 35 % (24-48) Monocytes (%) (Auto) 7 % (0-9) Eosinophils (%) (Auto) 2 % (0-3) Basophils (%) (Auto) 1 % (0-3) Neutrophils # (Auto) 6.1 x10^3uL (1.8-7.7) Lymphocytes # (Auto) 3.8 x10^3/uL (1.0-4.8) Monocytes # (Auto) 0.8 x10^3/uL (0.0-1.1) Eosinophils # (Auto) 0.2 x10^3/uL (0.0-0.7) Basophils # (Auto) 0.1 x10^3/uL (0.0-0.2) Sodium Level 136 mmol/L (136-145) Potassium Level 4.0 mmol/L (3.5-5.1) Chloride Level 98 mmol/L (98-107) Carbon Dioxide Level 27 mmol/L (21-32) Anion Gap 11 (6-14) Blood Urea Nitrogen 15 mg/dL (7-20) Creatinine 0.8 mg/dL (0.6-1.0) Estimated GFR (Cockcroft-Gault) 77.9 Glucose Level 276 mg/dL (70-99) H Calcium Level 8.8 mg/dL (8.5-10.1) POC Urine HCG, Qualitative Hcg negative (Negative) Urine Color Yellow Urine Clarity Clear Urine pH 6.0 Urine Specific [place] 1.025 Urine Protein 100 mg/dL (NEG-TRACE) Urine Glucose (UA) >=1000 mg/dL (NEG) Urine Ketones (Stick) Negative mg/dL (NEG) Urine Blood Negative (NEG) Urine Nitrite Negative (NEG) Urine Bilirubin Negative (NEG) Urine Urobilinogen Dipstick 0.2 mg/dL (0.2 mg/dL) Urine Leukocyte Esterase Negative (NEG) Urine RBC 0 /HPF (0-2) Urine WBC 1-4 /HPF (0-4) Urine Squamous Epithelial Cells Occ /LPF Urine Bacteria Few /HPF (0-FEW) Urine Mucus Slight /LPF Laboratory Tests 02/11/17 17:00 Laboratory Tests 02/11/17 17:00 EKG EKG Interpreted by me: Heart rate 67, sinus rhythm, normal intervals, normal axis, no acute ST/T-wave abnormalities present[] Radiology/Procedures Radiology/Procedures Not performed[] Course & Med Decision Making Course & Med Decision Making Pertinent Labs and Imaging studies reviewed. (See chart for details) Patient was given IV fluids, Toradol, Compazine, and Benadryl. The patient's lab work showed elevated blood sugar but no other significant abnormalities. The patient's symptoms appear consistent with migraine headache and right shoulder muscle strain. Patient was prescribed Fioricet for continued treatment of symptoms as outpatient. Advised return to emergency department for any worsening symptoms and recommended follow-up with primary doctor in 3-4 days for reevaluation. Patient voiced understanding and in agreement with treatment plan. Dragon Disclaimer Dragon Disclaimer This electronic medical record was generated, in whole or in part, using a voice recognition dictation system. Departure Departure Impression: Primary Impression: Migraine headache Additional Impression: Muscle strain of right shoulder Disposition: 01 HOME, SELF-CARE Condition: IMPROVED Referrals: DENG ROOT MD (PCP) Patient Instructions: Migraine Headache, Muscle Strain Additional Instructions: Follow-up with your primary doctor in the next 3-4 days for reevaluation. Return to the emergency department for any worsening symptoms. Scripts Naproxen (NAPROSYN) 500 Mg Tablet 1 TAB PO BID Y for PAIN, #20 TAB 0 Refills Prov: FABI LEIGH MD 02/11/17 Butalb/Acetaminophen/Caffeine ([id number] CP) 1 Each Capsule 1 EACH PO Q4-6HRS Y for HEADACHE, #20 CAP Prov: FABI LEIGH MD 02/11/17 Problem Qualifiers Primary Impression: Migraine headache Migraine type: unspecified Status migrainosus presence: without status migrainosus Intractability: not intractable Qualified Codes: G43.909 - Migraine, unspecified, not intractable, without status migrainosus Additional Impression: Muscle strain of right shoulder Encounter type: initial encounter Qualified Codes: S46.911A - Strain of unspecified muscle, fascia and tendon at shoulder and upper arm level, right arm , initial encounter FABI LEIGH MD Feb 11, 2017 17:00
[2017-02-11 17:08] LABS: BASO # 0.1 x10^3/uL (0.0-0.2); BASO % 1 % (0-3); EOS % 2 % (0-3); HEMATOCRIT 41.4 % (36.0-47.0); HEMOGLOBIN 14.1 g/dL (12.0-15.5); LYMPH # 3.8 x10^3/uL (1.0-4.8); LYMPH % 35 % (24-48); MEAN CORPUSCULAR HEMOGLOBIN 29 pg (25-35); MEAN CORPUSCULAR HGB CONC 34 g/dL (31-37); MEAN CORPUSCULAR VOLUME 86 fL (79-100); MONO % 7 % (0-9); NEUT % 55 % (31-73); PLATELET COUNT 243 x10^3/uL (140-400); RED BLOOD COUNT 4.81 x10^6/uL (3.50-5.40); RED CELL DISTRIBUTION WIDTH 13.1 % (11.5-14.5)
[2017-02-11 17:26] LABS: CALCIUM 8.8 mg/dL (8.5-10.1); CREATININE 0.8 mg/dL (0.6-1.0); GFR 77.9
--- NOTE | 2017-02-11 17:33 | EKG ---
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
[2017-02-11 17:48] LABS: BILIRUBIN,URINE NEGATIVE (NEG); GLUCOSE,URINE >=1000 mg/dL (NEG); NITRITE,URINE NEGATIVE (NEG); PROTEIN,URINE 100 mg/dL (NEG-TRACE); UROBILINOGEN,URINE 0.2 mg/dL (0.2 mg/dL)
[2017-02-11 17:57] LABS: BACTERIA,URINE FEW /HPF (0-FEW); RBC,URINE 0 /HPF (0-2)
[2017-02-11 17:58] LABS: SQUAMOUS EPITHELIAL CELL,UR OCC /LPF
[2017-02-11 18:00] VITALS: BP 136/63
[2017-02-11] MEDS ORDERED: BUTA1CAP27 PO (18:06)
[2017-02-11] MEDS ORDERED: NAPR-683 PO (18:06)
== END 2017-02-11 18:22 | disposition home or self-care (01) ==
LOC: ER 16:17
DX: S46.911A Strain of unspecified muscle, fascia and tendon at shoulder and upper arm level, right arm, initial encounter (principal); G43.909 Migraine, unspecified, not intractable, without status migrainosus; E11.9 Type 2 diabetes mellitus without complications; R11.0 Nausea; X58.XXXA Exposure to other specified factors, initial encounter; Y93.89 Activity, other specified; Y99.8 Other external cause status; Y92.89 Other specified places as the place of occurrence of the external cause
CPT/HCPCS: 36415; 80048; 81001; 81025; 85025; 93005; 96361; 96374; 96375; 99285; J0780; J1200; J1885; J7030

== ENCOUNTER 2017-03-15 16:43 | Emergency (ER) | payer OTHER ==
[2017-03-15 18:11] LABS: BILIRUBIN,URINE NEGATIVE (NEG); CLARITY,URINE CLEAR; COLOR,URINE YELLOW; GLUCOSE,URINE 100 mg/dL (NEG); NITRITE,URINE NEGATIVE (NEG); PH,URINE 5.5; PROTEIN,URINE 30 mg/dL (NEG-TRACE); UROBILINOGEN,URINE 0.2 mg/dL (0.2 mg/dL)
[2017-03-15 18:20] LABS: ADD MAN DIFF? NO
[2017-03-15 18:23] LABS: BASO # 0.1 x10^3/uL (0.0-0.2); BASO % 1 % (0-3); EOS # 0.2 x10^3/uL (0.0-0.7); EOS % 2 % (0-3); HEMATOCRIT 42.1 % (36.0-47.0); HEMOGLOBIN 13.8 g/dL (12.0-15.5); LYMPH # 4.1 x10^3/uL (1.0-4.8); LYMPH % 38 % (24-48); MEAN CORPUSCULAR HEMOGLOBIN 29 pg (25-35); MEAN CORPUSCULAR HGB CONC 33 g/dL (31-37); MEAN CORPUSCULAR VOLUME 87 fL (79-100); MONO # 0.8 x10^3/uL (0.0-1.1); MONO % 8 % (0-9); NEUT # 5.5 x10^3uL (1.8-7.7); NEUT % 51 % (31-73); PLATELET COUNT 306 x10^3/uL (140-400); RED BLOOD COUNT 4.82 x10^6/uL (3.50-5.40); RED CELL DISTRIBUTION WIDTH 13.3 % (11.5-14.5); WHITE BLOOD COUNT 10.8 x10^3/uL (4.0-11.0)
[2017-03-15 18:34] LABS: BACTERIA,URINE MANY /HPF (0-FEW); RBC,URINE 0 /HPF (0-2); SQUAMOUS EPITHELIAL CELL,UR MOD /LPF
[2017-03-15 18:36] LABS: ANION GAP 13 (6-14); BLOOD UREA NITROGEN 19 mg/dL (7-20); CALCIUM 9.5 mg/dL (8.5-10.1); CARBON DIOXIDE 25 mmol/L (21-32); CHLORIDE 100 mmol/L (98-107); CREATININE 0.7 mg/dL (0.6-1.0); GFR 90.5; GLUCOSE 187 mg/dL (70-99); SODIUM 138 mmol/L (136-145)
[2017-03-15 18:37] LABS: NEG OBC UR NEG; POS OBC UR POS; U PREG PATIENT NEGATIVE (NEG)
[2017-03-15] MEDS: PROCHLORPERAZINE 10 MG/2 ML VIAL. IV (18:43)
[2017-03-15] MEDS: IV NORMAL SALINE 1000ML BAG 1,000 ML IV (18:44)
[2017-03-15] MEDS: KETOROLAC 30 MG/ML INJ. IV (18:45)
[2017-03-15] MEDS: diphenhydrAMINE 50 MG/ML VIAL IVP (18:45)
== END 2017-03-15 19:30 | disposition home or self-care (01) ==
LOC: ER 19:30
DX: G43.909 Migraine, unspecified, not intractable, without status migrainosus (principal); E11.9 Type 2 diabetes mellitus without complications
CPT/HCPCS: 36415; 80048; 81001; 81025; 83735; 85025; 87086; 96361; 96374; 96375; 99284-25; J0780; J1200; J1885; J7030

== ENCOUNTER 2017-03-21 18:08 | Emergency (ER) | payer OTHER ==
[2017-03-21] MEDS: diphenhydrAMINE 50 MG/ML VIAL IM ×2 (19:27)
[2017-03-21] MEDS: PROMETHAZINE IM 25 MG/ML VIAL IM ×2 (19:29)
[2017-03-21] MEDS: KETOROLAC 60 MG/2 ML INJ. IM ×2 (19:31)
== END 2017-03-21 19:51 | disposition home or self-care (01) ==
LOC: ER 19:51
DX: R51 Headache (principal); G43.909 Migraine, unspecified, not intractable, without status migrainosus; E11.9 Type 2 diabetes mellitus without complications
CPT/HCPCS: 96372; 99284-25; J1200; J1885; J2550

== ENCOUNTER 2017-04-02 14:11 | Emergency (ER) | payer OTHER ==
[2017-04-02 14:45] LABS: URINE HCG POC HCG NEGATIVE (Negative)
[2017-04-02 15:21] LABS: ADD MAN DIFF? NO
[2017-04-02 15:28] LABS: BILIRUBIN,URINE NEGATIVE (NEG); CLARITY,URINE CLEAR; COLOR,URINE YELLOW; GLUCOSE,URINE >=1000 mg/dL (NEG); NITRITE,URINE NEGATIVE (NEG); PROTEIN,URINE 30 mg/dL (NEG-TRACE); UROBILINOGEN,URINE 0.2 mg/dL (0.2 mg/dL)
[2017-04-02 15:30] LABS: BASO % 1 % (0-3); EOS # 0.2 x10^3/uL (0.0-0.7); EOS % 3 % (0-3); HEMATOCRIT 38.4 % (36.0-47.0); LYMPH # 2.5 x10^3/uL (1.0-4.8); LYMPH % 31 % (24-48); MEAN CORPUSCULAR HEMOGLOBIN 29 pg (25-35); MEAN CORPUSCULAR HGB CONC 34 g/dL (31-37); MEAN CORPUSCULAR VOLUME 85 fL (79-100); MONO # 0.9 x10^3/uL (0.0-1.1); MONO % 11 % (0-9); NEUT # 4.3 x10^3uL (1.8-7.7); NEUT % 55 % (31-73); PLATELET COUNT 262 x10^3/uL (140-400); RED CELL DISTRIBUTION WIDTH 13.1 % (11.5-14.5); WHITE BLOOD COUNT 7.9 x10^3/uL (4.0-11.0)
[2017-04-02 15:40] LABS: BACTERIA,URINE MODERATE /HPF (0-FEW); RBC,URINE 0 /HPF (0-2); SQUAMOUS EPITHELIAL CELL,UR MANY /LPF; WBC,URINE 0 /HPF (0-4)
[2017-04-02] MEDS: IV NORMAL SALINE 1000ML BAG 1,000 ML IV ×2 (15:46)
[2017-04-02] MEDS: PROCHLORPERAZINE 10 MG/2 ML VIAL. IV ×2 (15:47)
[2017-04-02] MEDS: diphenhydrAMINE 50 MG/ML VIAL IVP ×2 (15:47)
[2017-04-02] MEDS: KETOROLAC 30 MG/ML INJ. IV ×2 (15:47)
[2017-04-02] MEDS: fentaNYL PF VIAL 100 MCG/2 ML VIAL IV ×2 (15:48)
[2017-04-02 15:53] LABS: ANION GAP 12 (6-14); BLOOD UREA NITROGEN 11 mg/dL (7-20); BUN/CREATININE RATIO 16 (6-20); CALCIUM 9.6 mg/dL (8.5-10.1); CARBON DIOXIDE 25 mmol/L (21-32); CHLORIDE 98 mmol/L (98-107); CREATININE 0.7 mg/dL (0.6-1.0); GFR 90.5; GLUCOSE 166 mg/dL (70-99); POTASSIUM 3.8 mmol/L (3.5-5.1); SODIUM 135 mmol/L (136-145)
[2017-04-02 15:59] LABS: ALBUMIN 3.7 g/dL (3.4-5.0); ALBUMIN/GLOBULIN RATIO 0.8 (1.0-1.7); ALK PHOS 59 U/L (46-116); ALT (SGPT) 34 U/L (14-59); AST (SGOT) 37 U/L (15-37); LIPASE 145 U/L (73-393); TOTAL BILIRUBIN 0.3 mg/dL (0.2-1.0); TOTAL PROTEIN 8.2 g/dL (6.4-8.2)
[2017-04-02 17:02] LABS: INFLUENZA A PATIENT POSITIVE (NEGATIVE)
[2017-04-02 17:03] LABS: INFLUENZA B PATIENT NEGATIVE (NEGATIVE); OBC FLU VALID
== END 2017-04-02 17:55 | disposition home or self-care (01) ==
LOC: ER 14:11
DX: J09.X2 Influenza due to identified novel influenza A virus with other respiratory manifestations (principal); E11.9 Type 2 diabetes mellitus without complications; G43.909 Migraine, unspecified, not intractable, without status migrainosus
CPT/HCPCS: 36415; 71045; 80053; 81001; 81025; 83690; 85025; 87086; 87804; 87804-59; 93005; 96361; 96374; 96375; 99285-25; J0780; J1200; J1885; J3010; J7030

== ENCOUNTER 2017-07-20 18:29 | Emergency (ER) | payer OTHER ==
[2017-07-20] MEDS: diphenhydrAMINE HCL 25 MG CAPSULE PO (19:08)
[2017-07-20] MEDS: METOCLOPRAMIDE 10 MG TABLET. PO (19:08)
[2017-07-20] MEDS: KETOROLAC 60 MG/2 ML INJ. IM (19:10)
== END 2017-07-20 19:42 | disposition home or self-care (01) ==
LOC: ER 18:29
DX: R51 Headache (principal); G43.909 Migraine, unspecified, not intractable, without status migrainosus; E11.9 Type 2 diabetes mellitus without complications
CPT/HCPCS: 96372; 99283-25; J1885; J8597; Q0163

== ENCOUNTER 2017-08-27 21:03 | Emergency (ER) | payer OTHER ==
[2017-08-27] MEDS: diphenhydrAMINE HCL 25 MG CAPSULE PO (21:27)
[2017-08-27] MEDS: predniSONE 20 MG TABLET PO (21:27)
[2017-08-27] MEDS: PROCHLORPERAZINE 10 MG/2 ML VIAL. IM (21:28)
[2017-08-27] MEDS: KETOROLAC 60 MG/2 ML INJ. IM (21:28)
== END 2017-08-27 21:51 | disposition home or self-care (01) ==
LOC: ER 21:03
DX: G43.909 Migraine, unspecified, not intractable, without status migrainosus (principal); E11.9 Type 2 diabetes mellitus without complications; Z87.442 Personal history of urinary calculi
CPT/HCPCS: 96372; 99284; J0780; J1885; J7512; Q0163

== ENCOUNTER 2017-09-03 15:19 | Emergency (ER) | payer OTHER ==
[2017-09-03] MEDS: KETOROLAC 60 MG/2 ML INJ. IM (16:34)
[2017-09-03] MEDS: DEXAMETHASONE SOD PHOS 4 MG/ML VIAL IM (16:34)
[2017-09-03] MEDS: diphenhydrAMINE 50 MG/ML VIAL IM (16:35)
[2017-09-03] MEDS: ONDANSETRON ODT 4 MG TAB.RAPDIS. PO (16:35)
== END 2017-09-03 17:15 | disposition home or self-care (01) ==
LOC: ER 15:19
DX: R51 Headache (principal); G43.909 Migraine, unspecified, not intractable, without status migrainosus; E11.9 Type 2 diabetes mellitus without complications
CPT/HCPCS: 96372; 99284-25; J1100; J1200; J1885; Q0162

== ENCOUNTER 2017-09-18 18:41 | Emergency (ER) | payer OTHER ==
[2017-09-18] MEDS: diphenhydrAMINE 50 MG/ML VIAL IM (19:37)
[2017-09-18] MEDS: DEXAMETHASONE SOD PHOS 4 MG/ML VIAL IM (19:38)
[2017-09-18] MEDS: KETOROLAC 60 MG/2 ML INJ. IM (19:40)
[2017-09-18] MEDS: METOCLOPRAMIDE 10 MG TABLET. PO (19:43)
== END 2017-09-18 20:22 | disposition home or self-care (01) ==
LOC: ER 18:41
DX: G43.909 Migraine, unspecified, not intractable, without status migrainosus (principal); E11.9 Type 2 diabetes mellitus without complications; Z90.89 Acquired absence of other organs
CPT/HCPCS: 96372; 99284; J1100; J1200; J1885; J8597

== ENCOUNTER 2017-09-24 15:07 | Emergency (ER) | payer OTHER ==
[2017-09-24] MEDS: PROCHLORPERAZINE 10 MG/2 ML VIAL. IM (15:45)
[2017-09-24] MEDS: diphenhydrAMINE HCL 25 MG CAPSULE PO (15:45)
[2017-09-24] MEDS: KETOROLAC 30 MG/ML INJ. IM (15:45)
== END 2017-09-24 16:55 | disposition home or self-care (01) ==
LOC: ER 15:07
DX: R51 Headache (principal); E11.9 Type 2 diabetes mellitus without complications; G43.909 Migraine, unspecified, not intractable, without status migrainosus
CPT/HCPCS: 96372; 99284; J0780; J1885; Q0163

== ENCOUNTER 2017-12-26 18:07 | Emergency (ER) | payer OTHER ==
[~2017-12-26] VITALS: Ht 152.4 cm; Wt 68.9 kg
[~2017-12-26 18:07] MED LIST changes: +BUTA1CAP27 PO; +BUTA1CAP57 PO; +BUTA1TAB23 PO; +HYDR-971 PO; +OSEL75CA PO; +TRAM50TA PO; +VENTOLIN HFA18 GM INH
[2017-12-26] MEDS ORDERED: IV NORMAL SALINE 1000ML BAG 1,000 ML IV ONE (18:45)
[2017-12-26] MEDS ORDERED: LIDO:MAALOX 1:1 20 ML SINGLE DOSE. PO ONE (18:45)
[2017-12-26 19:06] LABS: BASO # 0.1 x10^3/uL (0.0-0.2); BASO % 1 % (0-3); EOS # 0.1 x10^3/uL (0.0-0.7); EOS % 1 % (0-3); HEMATOCRIT 37.7 % (36.0-47.0); HEMOGLOBIN 13.2 g/dL (12.0-15.5); LYMPH # 3.5 x10^3/uL (1.0-4.8); LYMPH % 25 % (24-48); MEAN CORPUSCULAR HEMOGLOBIN 30 pg (25-35); MEAN CORPUSCULAR HGB CONC 35 g/dL (31-37); MEAN CORPUSCULAR VOLUME 86 fL (79-100); MONO # 0.9 x10^3/uL (0.0-1.1); MONO % 6 % (0-9); NEUT # 9.6 x10^3uL (1.8-7.7); NEUT % 67 % (31-73); PLATELET COUNT 316 x10^3/uL (140-400); WHITE BLOOD COUNT 14.3 x10^3/uL (4.0-11.0)
[2017-12-26 19:08] LABS: BILIRUBIN,URINE NEGATIVE (NEG); CLARITY,URINE CLEAR; COLOR,URINE YELLOW; NITRITE,URINE NEGATIVE (NEG); PH,URINE 5.5; PROTEIN,URINE NEGATIVE (NEG-TRACE); UROBILINOGEN,URINE 0.2 mg/dL (0.2 mg/dL)
[2017-12-26 19:13] LABS: BACTERIA,URINE FEW /HPF (0-FEW); RBC,URINE 0 /HPF (0-2); SQUAMOUS EPITHELIAL CELL,UR MOD /LPF
[2017-12-26 19:15] LABS: CALCIUM 8.8 mg/dL (8.5-10.1); CREATININE 0.8 mg/dL (0.6-1.0); GFR 77.6
[2017-12-26 19:21] LABS: ALBUMIN 3.6 g/dL (3.4-5.0); ALBUMIN/GLOBULIN RATIO 0.9 (1.0-1.7); MAGNESIUM 1.8 mg/dL (1.8-2.4); TOTAL BILIRUBIN 0.2 mg/dL (0.2-1.0); TOTAL PROTEIN 7.5 g/dL (6.4-8.2)
--- NOTE | 2017-12-26 19:36 | EKG ---
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
--- NOTE | 2017-12-26 19:39 | RAD ---
CHEST PA LATERAL dated 12/26/2017 7:01 PM. Comparison: None. Clinical Indication: PATIENT COMES IN WITH CHEST PAIN AND COUGH. HX HYPERTENSION, DIABETES Findings: PA and lateral views of the chest were obtained. Heart and mediastinal contours within normal limits. Lungs are clear without focal consolidation. Vascular interstitium within normal limits. No pleural effusion or pneumothorax. Impression: No acute radiographic abnormality. Electronically signed by: Jaspreet Broussard MD (12/26/2017 7:36 PM) [facility]
[2017-12-26] MEDS ORDERED: FAMO-63 PO (20:14)
--- NOTE | 2017-12-26 20:14 | PHYS DOC ---
Past Medical History Past Medical History: Diabetes-Type II, Kidney Stone, Migraines Additional Past Medical Histor: HEADACHES, K STONE Past Surgical History: Appendectomy Additional Past Surgical Histo: KIDNEY STONE Alcohol Use: None Drug Use: None Adult General Chief Complaint Chief Complaint: CHEST PAIN HPI HPI Patient is a 47 year old [f__sex] who presents with [] Review of Systems Review of Systems Constitutional: Denies fever or chills [] Eyes: Denies change in visual acuity, redness, or eye pain [] HENT: Denies nasal congestion or sore throat [] Respiratory: Denies cough or shortness of breath [] Cardiovascular: No additional information not addressed in HPI [] GI: Denies abdominal pain, nausea, vomiting, bloody stools or diarrhea [] : Denies dysuria or hematuria [] Musculoskeletal: Denies back pain or joint pain [] Integument: Denies rash or skin lesions [] Neurologic: Denies headache, focal weakness or sensory changes [] Endocrine: Denies polyuria or polydipsia [] All other systems were reviewed and found to be within normal limits, except as documented in this note. Current Medications Current Medications Current Medications Medications (Trade) Dose Ordered Sig/Ministerio Start Time Stop Time Status Last Admin Dose Admin Insulin Human Regular (HumuLIN R VIAL) 12 unit 1X ONCE 12/26/17 20:15 12/26/17 20:26 DC 12/26/17 20:39 12 UNIT Multi-Ingredient Mouthwash/Gargle (Gi Cocktail) 20 ml 1X ONCE 12/26/17 18:45 12/26/17 18:51 DC 12/26/17 18:56 20 ML Sodium Chloride 1,000 ml @ 1,000 mls/hr 1X ONCE 12/26/17 18:45 12/26/17 19:44 DC 12/26/17 18:56 1,000 MLS/HR Allergies Allergies Allergies Coded Allergies Type Severity Reaction Last Updated Verified No Known Drug Allergies 04/01/15 No Physical Exam Physical Exam Constitutional: Well developed, well nourished, no acute distress, non-toxic appearance. [] HENT: Normocephalic, atraumatic, bilateral external ears normal, oropharynx moist, no oral exudates, nose normal. [] Eyes: PERRLA, EOMI, conjunctiva normal, no discharge. [] Neck: Normal range of motion, no tenderness, supple, no stridor. [] Cardiovascular:Heart rate regular rhythm, no murmur [] Lungs & Thorax: Bilateral breath sounds clear to auscultation [] Abdomen: Bowel sounds normal, soft, no tenderness, no masses, no pulsatile masses. [] Skin: Warm, dry, no erythema, no rash. [] Back: No tenderness, no CVA tenderness. [] Extremities: No tenderness, no cyanosis, no clubbing, ROM intact, no edema. [] Neurologic: Alert and oriented X 3, normal motor function, normal sensory function, no focal deficits noted. [] Psychologic: Affect normal, judgement normal, mood normal. [] Current Patient Data Vital Signs Vital Signs Date Time Temp Pulse Resp B/P (MAP) Pulse Ox O2 Delivery O2 Flow Rate FiO2 12/26/17 18:11 97.9 86 18 143/72 (95) 97 Room Air 97.9 Lab Values Laboratory Tests Test 12/26/17 18:36 12/26/17 18:41 12/26/17 19:58 12/26/17 20:10 Urine Collection Type Unknown Urine Color Yellow Urine Clarity Clear Urine pH 5.5 Urine Specific [place] 1.025 Urine Protein Negative mg/dL (NEG-TRACE) Urine Glucose (UA) >=1000 mg/dL (NEG) Urine Ketones (Stick) Negative mg/dL (NEG) Urine Blood Negative (NEG) Urine Nitrite Negative (NEG) Urine Bilirubin Negative (NEG) Urine Urobilinogen Dipstick 0.2 mg/dL (0.2 mg/dL) Urine Leukocyte Esterase Negative (NEG) Urine RBC 0 /HPF (0-2) Urine WBC 1-4 /HPF (0-4) Urine Squamous Epithelial Cells Mod /LPF Urine Bacteria Few /HPF (0-FEW) Urine Mucus Slight /LPF White Blood Count 14.3 x10^3/uL (4.0-11.0) H Red Blood Count 4.40 x10^6/uL (3.50-5.40) Hemoglobin 13.2 g/dL (12.0-15.5) Hematocrit 37.7 % (36.0-47.0) Mean Corpuscular Volume 86 fL (79-100) Mean Corpuscular Hemoglobin 30 pg (25-35) Mean Corpuscular Hemoglobin Concent 35 g/dL (31-37) Red Cell Distribution Width 13.0 % (11.5-14.5) Platelet Count 316 x10^3/uL (140-400) Neutrophils (%) (Auto) 67 % (31-73) Lymphocytes (%) (Auto) 25 % (24-48) Monocytes (%) (Auto) 6 % (0-9) Eosinophils (%) (Auto) 1 % (0-3) Basophils (%) (Auto) 1 % (0-3) Neutrophils # (Auto) 9.6 x10^3uL (1.8-7.7) H Lymphocytes # (Auto) 3.5 x10^3/uL (1.0-4.8) Monocytes # (Auto) 0.9 x10^3/uL (0.0-1.1) Eosinophils # (Auto) 0.1 x10^3/uL (0.0-0.7) Basophils # (Auto) 0.1 x10^3/uL (0.0-0.2) Sodium Level 134 mmol/L (136-145) L Potassium Level 4.0 mmol/L (3.5-5.1) Chloride Level 99 mmol/L (98-107) Carbon Dioxide Level 24 mmol/L (21-32) Anion Gap 11 (6-14) Blood Urea Nitrogen 15 mg/dL (7-20) Creatinine 0.8 mg/dL (0.6-1.0) Estimated GFR (Cockcroft-Gault) 77.6 BUN/Creatinine Ratio 19 (6-20) Glucose Level 382 mg/dL (70-99) H Calcium Level 8.8 mg/dL (8.5-10.1) Magnesium Level 1.8 mg/dL (1.8-2.4) Total Bilirubin 0.2 mg/dL (0.2-1.0) Aspartate Amino Transferase (AST) 10 U/L (15-37) L Alanine Aminotransferase (ALT) 19 U/L (14-59) Alkaline Phosphatase 77 U/L (46-116) Creatine Kinase 79 U/L (26-192) Creatine Kinase MB (Mass) 0.7 ng/mL (0.0-3.6) Creatine Kinase MB Relative Index 0.9 % (0-4) Troponin I Quantitative < 0.017 ng/mL (0.000-0.055) < 0.017 ng/mL (0.000-0.055) HC-Pkd-G-Type Natriuretic Peptide 26 pg/mL (0-124) Total Protein 7.5 g/dL (6.4-8.2) Albumin 3.6 g/dL (3.4-5.0) Albumin/Globulin Ratio 0.9 (1.0-1.7) L Lipase 245 U/L (73-393) POC Urine HCG, Qualitative Hcg negative (Negative) Test 12/26/17 20:30 Glucose (Fingerstick) 344 mg/dL (70-99) H Laboratory Tests 12/26/17 18:41 Laboratory Tests 12/26/17 18:41 EKG EKG @1812 NSR at 94bpm, low voltage QRS, NO ST elevation Radiology/Procedures Radiology/Procedures PROCEDURE: CHEST PA & LATERAL CHEST PA LATERAL dated 12/26/2017 7:01 PM. Comparison: None. Clinical Indication: PATIENT COMES IN WITH CHEST PAIN AND COUGH. HX HYPERTENSION, DIABETES Findings: PA and lateral views of the chest were obtained. Heart and mediastinal contours within normal limits. Lungs are clear without focal consolidation. Vascular interstitium within normal limits. No pleural effusion or pneumothorax. Impression: No acute radiographic abnormality. Electronically signed by: Jaspreet Broussard MD (12/26/2017 7:36 PM) [facility] Course & Med Decision Making Course & Med Decision Making Pertinent Labs and Imaging studies reviewed. (See chart for details) [] Dragon Disclaimer Dragon Disclaimer This electronic medical record was generated, in whole or in part, using a voice recognition dictation system. Departure Departure Impression: Primary Impression: Chest pain Additional Impression: Hyperglycemia Disposition: HOME, SELF-CARE Condition: IMPROVED Referrals: DENG ROOT MD (PCP) Patient Instructions: Chest Pain (Nonspecific), [id number], Gastritis, Adult , [id number] Scripts Famotidine (PEPCID) 20 Mg Tablet 20 MG PO BID, #20 TAB Prov: JASPREET LIVE DO 12/26/17 Problem Qualifiers Primary Impression: Chest pain Chest pain type: unspecified Qualified Codes: R07.9 - Chest pain, unspecified JASPREET LIVE DO Dec 26, 2017 20:14
[2017-12-26] MEDS ORDERED: INSULIN REGULAR 100 UNIT/ML 3ML VIAL. IV ONE (20:15)
[2017-12-26 21:00] VITALS: BP 124/64
== END 2017-12-26 21:27 | disposition home or self-care (01) ==
LOC: ER 18:07
DX: R07.89 Other chest pain (principal); E11.65 Type 2 diabetes mellitus with hyperglycemia; G43.909 Migraine, unspecified, not intractable, without status migrainosus; Z87.442 Personal history of urinary calculi; Z90.89 Acquired absence of other organs
CPT/HCPCS: 36415; 71046; 80053; 81001; 81025; 82553; 82962; 83690; 83735; 83880; 84484; 85025; 93005; 96361; 96374; 99285; J1815; J7030

== ENCOUNTER 2018-08-22 21:44 | Emergency (ER) | payer OTHER ==
[~2018-08-22] VITALS: Ht 157.5 cm; Wt 72.6 kg
[~2018-08-22 21:44] MED LIST changes: +FAMO-63 PO; +HYDR-3164 PO; -HYDR-971 PO
[2018-08-22 21:49] VITALS: BP 165/77
[2018-08-22] MEDS ORDERED: ONDA4TAB7 PO (22:09)
[2018-08-22] MEDS ORDERED: SUMA50TA3 PO (22:09)
--- NOTE | 2018-08-22 22:09 | PHYS DOC ---
Past Medical History Past Medical History: Diabetes-Type II, Kidney Stone, Migraines Additional Past Medical Histor: HEADACHES, K STONE Past Surgical History: Appendectomy Additional Past Surgical Histo: KIDNEY STONE Alcohol Use: None Drug Use: None Adult General Chief Complaint Chief Complaint: HEADACHE HPI HPI Patient is a 48 year old female with history of migraine headaches who presents to the ED today complaining of 10 out of 10 frontal headache that began this morning. Patient denies any nausea vomiting. Denies this being the worst headache in her life. She states she's had similar headaches before. She states the headache is intermittent and began gradually. She states she tried ibuprofen with no relief. Patient is Martiniquais speaking but understands some Malagasy and the is i nterpreting. Review of Systems Review of Systems Constitutional: Denies fever or chills [] Eyes: Denies change in visual acuity, redness, or eye pain [] HENT: Denies nasal congestion or sore throat [] Respiratory: Denies cough or shortness of breath [] Cardiovascular: No additional information not addressed in HPI [] GI: Denies abdominal pain, nausea, vomiting, bloody stools or diarrhea [] : Denies dysuria or hematuria [] Musculoskeletal: Denies back pain or joint pain [] Integument: Denies rash or skin lesions [] Neurologic: Reports frontal headache, denies focal weakness or sensory changes [] All other systems were reviewed and found to be within normal limits, except as documented in this note. Current Medications Current Medications Current Medications Medications (Trade) Dose Ordered Sig/Ministerio Start Time Stop Time Status Last Admin Dose Admin Diphenhydramine HCl (Benadryl) 25 mg 1X ONCE 08/22/18 22:15 08/22/18 22:16 UNV Ketorolac Tromethamine (Toradol Im) 60 mg 1X ONCE 08/22/18 22:15 08/22/18 22:16 UNV Prednisone (Prednisone) 50 mg 1X ONCE 08/22/18 22:15 08/22/18 22:16 UNV Prochlorperazine Edisylate (Compazine) 10 mg 1X ONCE 08/22/18 22:15 08/22/18 22:16 UNV Allergies Allergies Allergies Coded Allergies Type Severity Reaction Last Updated Verified No Known Drug Allergies 04/01/15 No Physical Exam Physical Exam Constitutional: Well developed, well nourished, no acute distress, non-toxic appearance. [] HENT: Normocephalic, atraumatic, bilateral external ears normal, oropharynx moist, no oral exudates, nose normal. [] Eyes: PERRLA, EOMI, conjunctiva normal, no discharge. [] Neck: Normal range of motion, no tenderness, supple, no stridor. [] Cardiovascular:Heart rate regular rhythm, no murmur [] Lungs & Thorax: Bilateral breath sounds clear to auscultation [] Abdomen: Bowel sounds normal, soft, no tenderness, no masses, no pulsatile masses. [] Skin: Warm, dry, no erythema, no rash. [] Back: No tenderness, no CVA tenderness. [] Extremities: No tenderness, no cyanosis, no clubbing, ROM intact, no edema. [] Neurologic: Alert and oriented X 3, normal motor function, normal sensory function, no focal deficits noted. Cranial nerves II through XII intact Psychologic: Affect normal, judgement normal, mood normal. [] Current Patient Data Vital Signs Vital Signs Date Time Temp Pulse Resp B/P (MAP) Pulse Ox O2 Delivery O2 Flow Rate FiO2 08/22/18 21:49 97.8 77 20 165/77 (106) 100 Room Air 97.8 EKG EKG [] Radiology/Procedures Radiology/Procedures [] Course & Med Decision Making Course & Med Decision Making Pertinent Labs and Imaging studies reviewed. (See chart for details) This is a 48-year-old female patient with history of migraine headaches presenting to the ED today with a migraine headache, there is nothing unusual about her migraine today. Was given Toradol, Compazine, Benadryl, prednisone, and discharged to home. Given prescription for Zofran, Imitrex. Follow-up with urologist in 1-2 weeks. Dragon Disclaimer Dragon Disclaimer This electronic medical record was generated, in whole or in part, using a voice recognition dictation system. Departure Departure Impression: Primary Impression: Migraine headache Disposition: HOME, SELF-CARE Condition: STABLE Referrals: DENG ROOT MD (PCP) follow up next week Patient Instructions: Migraine Headache Additional Instructions: You were seen in the emergency room for migraine headache, you were treated, go and rest in a quiet place. You can take the prescribed medications as needed for your symptoms starting tomorrow. Follow-up with your doctor in 1-2 weeks. Scripts Ondansetron Hcl (ZOFRAN) 4 Mg Tablet 1 TAB PO Q6HRS, #20 TAB Prov: OCTAVIO HURT APRN 08/22/18 Sumatriptan Succinate (IMITREX) 50 Mg Tablet 1 TAB PO UD, #9 TAB 1 Refill Prov: OCTAVIO HURT APRN 08/22/18 Problem Qualifiers Primary Impression: Migraine headache Migraine type: without aura Status migrainosus presence: without status migrainosus Intractability: not intractable Qualified Codes: G43.009 - Migraine without aura, not intractable, without status migrainosus OCTAVIO HURT APRN Aug 22, 2018 22:09
[2018-08-22] MEDS ORDERED: PROCHLORPERAZINE 10 MG/2 ML VIAL. IM ONE (22:15)
[2018-08-22] MEDS ORDERED: KETOROLAC 60 MG/2 ML VIAL. IM ONE (22:15)
[2018-08-22] MEDS ORDERED: diphenhydrAMINE HCL 25 MG CAPSULE PO ONE (22:15)
[2018-08-22] MEDS ORDERED: predniSONE 10 MG TABLET PO ONE (22:15)
== END 2018-08-22 22:55 | disposition home or self-care (01) ==
LOC: ER 21:44
DX: G43.009 Migraine without aura, not intractable, without status migrainosus (principal); E11.9 Type 2 diabetes mellitus without complications
CPT/HCPCS: 96372; 99284; J0780; J1885; J7512; Q0163

== ENCOUNTER 2018-11-12 21:53 | Emergency (ER) | payer OTHER ==
[~2018-11-12] VITALS: Ht 157.5 cm; Wt 72.6 kg
[~2018-11-12 21:53] MED LIST changes: +ONDA4TAB7 PO
[2018-11-12] MEDS ORDERED: IV NORMAL SALINE 1000ML BAG 1,000 ML IV ONE (23:00)
[2018-11-12] MEDS ORDERED: ACETAMINOPHEN 500 MG TABLET PO ONE (23:15)
[2018-11-12] MEDS ORDERED: diphenhydrAMINE 50 MG/ML VIAL IVP ONE (23:15)
[2018-11-12] MEDS ORDERED: METOCLOPRAMIDE HCL 10 MG/2 ML VIAL. IV ONE (23:15)
--- NOTE | 2018-11-12 23:15 | PHYS DOC ---
Past Medical History Past Medical History: Diabetes-Type II, Kidney Stone, Migraines Additional Past Medical Histor: HEADACHES, K STONE Past Surgical History: Appendectomy Additional Past Surgical Histo: KIDNEY STONE Alcohol Use: None Drug Use: None Adult General Chief Complaint Chief Complaint: HEADACHE HPI HPI Patient is a 48 year old female who presents with for migraine. Speaks Justin, no plate mill mill hand available, able to call son and get minimal information over the phone. Son reports hx of migraines, states this is a normal headache for her. Diffuse pain in the front of her head. No N/V/D. No fevers. No change in vision. Hx of DM, not sure what her blood glucose runs. No recent illness. Patient resting in no distress. difficult exam due to language barrier Review of Systems Review of Systems Constitutional: Denies fever or chills [] Eyes: Denies change in visual acuity, redness, or eye pain [] HENT: Denies nasal congestion or sore throat [] Respiratory: Denies cough or shortness of breath [] Cardiovascular: No additional information not addressed in HPI [] GI: Denies abdominal pain, nausea, vomiting, bloody stools or diarrhea [] Musculoskeletal: Denies back pain or joint pain [] Integument: Denies rash or skin lesions [] Neurologic: Denies focal weakness or sensory changes []c/o headache Endocrine: Denies polyuria or polydipsia [] All other systems were reviewed and found to be within normal limits, except as documented in this note. Current Medications Current Medications Current Medications Medications (Trade) Dose Ordered Sig/Ministerio Start Time Stop Time Status Last Admin Dose Admin Acetaminophen (Tylenol) 1,000 mg 1X ONCE 11/12/18 23:15 11/12/18 23:16 DC 11/12/18 23:58 1,000 MG Diphenhydramine HCl (Benadryl) 50 mg 1X ONCE 11/12/18 23:15 11/12/18 23:16 DC 11/12/18 23:58 50 MG Metoclopramide HCl (Reglan Vial) 5 mg 1X ONCE 11/12/18 23:15 11/12/18 23:16 DC 11/12/18 23:58 5 MG Sodium Chloride 1,000 ml @ 1,000 mls/hr 1X ONCE 11/12/18 23:00 11/12/18 23:59 DC 11/12/18 23:58 1,000 MLS/HR Allergies Allergies Allergies Coded Allergies Type Severity Reaction Last Updated Verified No Known Drug Allergies 04/01/15 No Physical Exam Physical Exam Constitutional: Well developed, well nourished, no acute distress, non-toxic appearance. [] HENT: Normocephalic, atraumatic, bilateral external ears normal, oropharynx moist, no oral exudates, nose normal. [] Eyes: PERRLA, EOMI, conjunctiva normal, no discharge. [] Neck: Normal range of motion, no tenderness, supple, no stridor. [] Cardiovascular:Heart rate regular rhythm, no murmur [] Lungs & Thorax: Bilateral breath sounds clear to auscultation [] Abdomen: Bowel sounds normal, soft, no tenderness, no masses, no pulsatile masses. [] Skin: Warm, dry, no erythema, no rash. [] Back: No tenderness, no CVA tenderness. [] Extremities: No tenderness, no cyanosis, no clubbing, ROM intact, no edema. [] Neurologic: Alert and oriented X 3, normal motor function, normal sensory function, no focal deficits noted. [] Psychologic: Affect normal, judgement normal, mood normal. [] Current Patient Data Vital Signs Vital Signs Date Time Temp Pulse Resp B/P (MAP) Pulse Ox O2 Delivery O2 Flow Rate FiO2 11/13/18 00:30 70 17 99 11/12/18 22:03 98.0 158/86 (110) Room Air 98.0 Lab Values Laboratory Tests Test 11/12/18 23:50 White Blood Count 11.4 x10^3/uL (4.0-11.0) H Red Blood Count 3.82 x10^6/uL (3.50-5.40) Hemoglobin 11.0 g/dL (12.0-15.5) L Hematocrit 32.6 % (36.0-47.0) L Mean Corpuscular Volume 86 fL (79-100) Mean Corpuscular Hemoglobin 29 pg (25-35) Mean Corpuscular Hemoglobin Concent 34 g/dL (31-37) Red Cell Distribution Width 14.1 % (11.5-14.5) Platelet Count 286 x10^3/uL (140-400) Neutrophils (%) (Auto) 55 % (31-73) Lymphocytes (%) (Auto) 35 % (24-48) Monocytes (%) (Auto) 6 % (0-9) Eosinophils (%) (Auto) 3 % (0-3) Basophils (%) (Auto) 1 % (0-3) Neutrophils # (Auto) 6.3 x10^3/uL (1.8-7.7) Lymphocytes # (Auto) 3.9 x10^3/uL (1.0-4.8) Monocytes # (Auto) 0.7 x10^3/uL (0.0-1.1) Eosinophils # (Auto) 0.3 x10^3/uL (0.0-0.7) Basophils # (Auto) 0.1 x10^3/uL (0.0-0.2) Sodium Level 139 mmol/L (136-145) Potassium Level 3.7 mmol/L (3.5-5.1) Chloride Level 104 mmol/L (98-107) Carbon Dioxide Level 19 mmol/L (21-32) L Anion Gap 16 (6-14) H Blood Urea Nitrogen 16 mg/dL (7-20) Creatinine 1.0 mg/dL (0.6-1.0) Estimated GFR (Cockcroft-Gault) 59.7 Glucose Level 184 mg/dL (70-99) H Calcium Level 8.9 mg/dL (8.5-10.1) Laboratory Tests 11/12/18 23:50 Laboratory Tests 11/12/18 23:50 EKG EKG [] Radiology/Procedures Radiology/Procedures [] Impressions: Headache Course & Med Decision Making Course & Med Decision Making Pertinent Labs and Imaging studies reviewed. (See chart for details) []Patient here for headache, due to language barrier diffiucl exam and hx. Son called and able to get on speaker phone and get some information. Even with son on the phone, patient is difficult to get details from Hx of DM Will obtain labs and provide medications for symptoms. CT head, no acute finding in 2017, states this was for the same type of headache Vitals stable, appears to have no neuro deficit. Labs with no acute finding, awoke and she has no further pain, she is anxious for DC home, discussed obtaining UA, she declines, wants to go home Son at bedside, reports hx of migraine and taking migraine medications, states she can see her doctor next week VSS, stable for home care, remains with no deficit. Educated on home care fu and reasons to return to the ER Claudio Disclaimer Claudio Disclaimer This electronic medical record was generated, in whole or in part, using a voice recognition dictation system. Departure Departure Impression: Primary Impression: Headache Disposition: HOME, SELF-CARE Condition: STABLE Referrals: DENG ROOT MD (PCP) Patient Instructions: Headache, FAQs Additional Instructions: Go home and rest Continue previous medications Talk with your doctor about pain, return for any concerns or worsening symptoms ONELIA RODNEY APRN Nov 12, 2018 23:15
[2018-11-12 23:58] LABS: BASO # 0.1 x10^3/uL (0.0-0.2); BASO % 1 % (0-3); EOS # 0.3 x10^3/uL (0.0-0.7); EOS % 3 % (0-3); HEMATOCRIT 32.6 % (36.0-47.0); LYMPH # 3.9 x10^3/uL (1.0-4.8); LYMPH % 35 % (24-48); MEAN CORPUSCULAR HEMOGLOBIN 29 pg (25-35); MEAN CORPUSCULAR HGB CONC 34 g/dL (31-37); MEAN CORPUSCULAR VOLUME 86 fL (79-100); MONO # 0.7 x10^3/uL (0.0-1.1); MONO % 6 % (0-9); NEUT # 6.3 x10^3/uL (1.8-7.7); NEUT % 55 % (31-73); PLATELET COUNT 286 x10^3/uL (140-400); RED BLOOD COUNT 3.82 x10^6/uL (3.50-5.40); RED CELL DISTRIBUTION WIDTH 14.1 % (11.5-14.5); WHITE BLOOD COUNT 11.4 x10^3/uL (4.0-11.0)
[2018-11-13 00:08] LABS: CALCIUM 8.9 mg/dL (8.5-10.1); GFR 59.7; POTASSIUM 3.7 mmol/L (3.5-5.1)
[2018-11-13 00:30] VITALS: BP 136/65
== END 2018-11-13 00:43 | disposition home or self-care (01) ==
LOC: ER 21:53
DX: G43.909 Migraine, unspecified, not intractable, without status migrainosus (principal); E11.9 Type 2 diabetes mellitus without complications
CPT/HCPCS: 36415; 80048; 85025; 96374; 96375; 99284; J1200; J2765; J7030

== ENCOUNTER 2018-12-05 13:45 | Emergency (ER) | payer OTHER ==
[~2018-12-05] VITALS: Ht 152.4 cm; Wt 72.6 kg
[2018-12-05 15:24] VITALS: BP 136/65
[2018-12-05] MEDS ORDERED: PROCHLORPERAZINE 10 MG/2 ML VIAL. IM ONE (15:45)
[2018-12-05] MEDS ORDERED: diphenhydrAMINE HCL 25 MG CAPSULE PO ONE (15:45)
[2018-12-05] MEDS ORDERED: methylPREDNISolone SOD SUCC PF 125 MG/2 ML VIAL. IM ONE (15:45)
[2018-12-05] MEDS ORDERED: KETOROLAC 60 MG/2 ML VIAL. IM ONE (15:45)
[2018-12-05] MEDS ORDERED: SUMA50TA3 PO (15:56)
[2018-12-05] MEDS ORDERED: PROM25TA10 PO (15:56)
--- NOTE | 2018-12-05 15:57 | PHYS DOC ---
Past Medical History Past Medical History: Diabetes-Type II, Kidney Stone, Migraines Additional Past Medical Histor: HEADACHES, K STONE (OCTAVIO HURT APRN) Past Surgical History: Appendectomy Additional Past Surgical Histo: KIDNEY STONE (OCTAVIO HURT APRN) Alcohol Use: None Drug Use: None (OCTAVIO HURT APRN) Adult General Chief Complaint Chief Complaint: HEADACHE HPI HPI Patient is a 48 year old female with history of migraine headaches who presents to the ED today complaining of a mild intermittent frontal migraine headache worse on the left side that began yesterday. Patient is complaining of photosensitivity, she is also complaining of nausea. Denies this being the worst headache in her life. She states this headache was a slow onset and consistent w ith her normal headaches. Patient is Croatian speaking and the is interpreting (OCTAVIO HURT APRN) Review of Systems Review of Systems Constitutional: Denies fever or chills [] Eyes: Denies change in visual acuity, redness, or eye pain [] HENT: Denies nasal congestion or sore throat [] Respiratory: Denies cough or shortness of breath [] Cardiovascular: No additional information not addressed in HPI [] GI: Denies abdominal pain, nausea, vomiting, bloody stools or diarrhea [] : Denies dysuria or hematuria [] Musculoskeletal: Denies back pain or joint pain [] Integument: Denies rash or skin lesions [] Neurologic: Reports headache, denies focal weakness or sensory changes [] All other systems were reviewed and found to be within normal limits, except as documented in this note. (OCTAVIO HURT APRN) Current Medications Current Medications Current Medications Medications (Trade) Dose Ordered Sig/Ministerio Start Time Stop Time Status Last Admin Dose Admin Diphenhydramine HCl (Benadryl) 25 mg 1X ONCE 12/05/18 15:45 12/05/18 15:46 DC 12/05/18 16:02 25 MG Ketorolac Tromethamine (Toradol Im) 60 mg 1X ONCE 12/05/18 15:45 12/05/18 15:46 DC 12/05/18 16:02 60 MG Methylprednisolone Sodium Succinate (SOLU-Medrol 125MG VIAL) 125 mg 1X ONCE 12/05/18 15:45 12/05/18 15:46 DC 12/05/18 16:02 125 MG Prochlorperazine Edisylate (Compazine) 10 mg 1X ONCE 12/05/18 15:45 12/05/18 15:46 DC 12/05/18 16:02 10 MG (STEPHANIE GRUBER MD) Allergies Allergies Allergies Coded Allergies Type Severity Reaction Last Updated Verified No Known Drug Allergies 04/01/15 No (STEPHANIE GRUBER MD) Physical Exam Physical Exam Constitutional: Well developed, well nourished, no acute distress, non-toxic appearance. [] HENT: Normocephalic, atraumatic, bilateral external ears normal, oropharynx moist, no oral exudates, nose normal. [] Eyes: PERRLA, EOMI, conjunctiva normal, no discharge. [] Neck: Normal range of motion, no tenderness, supple, no stridor. [] Cardiovascular:Heart rate regular rhythm, no murmur [] Lungs & Thorax: Bilateral breath sounds clear to auscultation [] Abdomen: Bowel sounds normal, soft, no tenderness, no masses, no pulsatile masses. [] Skin: Warm, dry, no erythema, no rash. [] Back: No tenderness, no CVA tenderness. [] Extremities: No tenderness, no cyanosis, no clubbing, ROM intact, no edema. [] Neurologic: Alert and oriented X 3, normal motor function, normal sensory function, no focal deficits noted. [] Psychologic: Affect normal, judgement normal, mood normal. [] (OCTAVIO HURT APRN) Current Patient Data Vital Signs Vital Signs Date Time Temp Pulse Resp B/P (MAP) Pulse Ox O2 Delivery O2 Flow Rate FiO2 12/05/18 15:24 98.6 86 12 136/65 (88) 98 Room Air 98.6 (STEPHANIE GRUBER MD) EKG EKG [] (OCTAVIO HURT APRN) Radiology/Procedures Radiology/Procedures [] (OCTAVIO HURT APRN) Course & Med Decision Making Course & Med Decision Making Pertinent Labs and Imaging studies reviewed. (See chart for details) This is a 48-year-old female patient presented to the ED today with migraine headache, patient has had similar headaches before, she reports nothing unusual about her headache today. She was given migraine cocktail in the ED and discharged. Follow-up with her PCP next week. (OCTAVIO HURT APRN) Dragon Disclaimer Dragon Disclaimer This electronic medical record was generated, in whole or in part, using a voice recognition dictation system. (OCTAVIO HURT APRN) Attending Signature I have participated in the care of this patient and I have reviewed and agree with all pertinent clinical information above including history, exam, and recommendations. (STEPHANIE GRUBER MD) Departure Departure Impression: Primary Impression: Migraine headache Disposition: HOME, SELF-CARE Condition: STABLE Referrals: DENG ROOT MD (PCP) Follow-up next week Patient Instructions: Migraine Headache Additional Instructions: You were evaluated in the emergency room for a migraine headache. Please take the prescribed medications as ordered. Follow-up with your doctor next week. Scripts Promethazine Hcl (PROMETHAZINE HCL) 25 Mg Tablet 1 TAB PO PRN Q6HRS, #20 TAB Prov: OCTAVIO HURT APRN 12/05/18 Sumatriptan Succinate (IMITREX) 50 Mg Tablet 1 TAB PO UD, #9 TAB 1 Refill Prov: OCTAVIO HURT APRN 12/05/18 Problem Qualifiers Primary Impression: Migraine headache Migraine type: unspecified Status migrainosus presence: without status migrainosus Intractability: not intractable Qualified Codes: G43.909 - Migraine, unspecified, not intractable, without status migrainosus OCTAVIO HURT APRN Dec 05, 2018 15:57 STEPHANIE GRUBER MD Dec 07, 2018 18:16
== END 2018-12-05 16:06 | disposition home or self-care (01) ==
LOC: ER 13:45
DX: G43.909 Migraine, unspecified, not intractable, without status migrainosus (principal); E11.9 Type 2 diabetes mellitus without complications; Z87.442 Personal history of urinary calculi
CPT/HCPCS: 96372; 99284; J0780; J1885; J2930; Q0163

== ENCOUNTER 2018-12-17 19:13 | Emergency (ER) | payer OTHER ==
[~2018-12-17] VITALS: Ht 160 cm; Wt 72.6 kg
[2018-12-17] MEDS ORDERED: LIDOCAINE 2% 20 ML VIAL. IJ STA (19:31)
[2018-12-17] MEDS ORDERED: KETOROLAC 15 MG/ML VIAL. IV STA (19:31)
--- NOTE | 2018-12-17 19:35 | PHYS DOC ---
Past Medical History Past Medical History: Diabetes-Type II, Kidney Stone, Migraines Additional Past Medical Histor: HEADACHES, K STONE (LEONILA LOWERY APRN) Past Surgical History: Appendectomy Additional Past Surgical Histo: KIDNEY STONE (LEONILA LOWERY APRN) Alcohol Use: None Drug Use: None (LEONILA LOWERY APRN) Adult General Chief Complaint Chief Complaint: HEADACHE HPI HPI Patient is a 48 year old female that presents with headache this been ongoing since 3:00 PM. The patient has a history of migraine headaches. The patient states that she's been having headaches for 3 years. She rates his pain as 10 out of 10 in severity and sharp. She says the headache is located in the frontal part of her head. Denies any history trauma. Denies light sensitivity, no nausea. (LEONILA LOWERY APRN) Review of Systems Review of Systems Constitutional: Denies fever or chills [] Eyes: Denies change in visual acuity, redness, or eye pain [] HENT: Denies nasal congestion or sore throat [] Respiratory: Denies cough or shortness of breath [] Cardiovascular: No additional information not addressed in HPI [] GI: Denies abdominal pain, nausea, vomiting, bloody stools or diarrhea [] : Denies dysuria or hematuria [] Musculoskeletal: Denies back pain or joint pain [] Integument: Denies rash or skin lesions [] Neurologic: Reports headache, Denies focal weakness or sensory changes [] Endocrine: Denies polyuria or polydipsia [] Complete systems were reviewed and found to be within normal limits, except as documented in this note. (LEONILA LOWERY APRN) Current Medications Current Medications Current Medications Medications (Trade) Dose Ordered Sig/Ministerio Start Time Stop Time Status Last Admin Dose Admin Diphenhydramine HCl (Benadryl) 25 mg 1X ONCE 12/17/18 19:45 12/17/18 19:46 DC 12/17/18 19:47 25 MG Ketorolac Tromethamine (Toradol 15mg Vial) 10 mg 1X STAT 12/17/18 19:31 12/17/18 19:36 DC 12/17/18 19:46 10 MG Lidocaine HCl 20 ml 1X STAT 12/17/18 19:31 12/17/18 19:36 DC 12/17/18 19:56 20 ML Prochlorperazine Edisylate (Compazine) 10 mg 1X ONCE 12/17/18 19:45 12/17/18 19:46 DC 12/17/18 19:46 10 MG Sodium Chloride 1,000 ml @ 1,000 mls/hr 1X ONCE 12/17/18 19:45 12/17/18 20:40 DC 12/17/18 19:46 1,000 MLS/HR (LEONILA LIVE DO) Allergies Allergies Allergies Coded Allergies Type Severity Reaction Last Updated Verified No Known Drug Allergies 04/01/15 No (LEONILA LIVE DO) Physical Exam Physical Exam Constitutional: Well developed, well nourished, no acute distress, non-toxic appearance. [] HENT: Normocephalic, atraumatic, bilateral external ears normal, oropharynx moist, no oral exudates, nose normal. [] Eyes: PERRLA, EOMI, conjunctiva normal, no discharge. [] Neck: Normal range of motion, no tenderness, supple, no stridor. [] Cardiovascular:Heart rate regular rhythm, no murmur [] Lungs & Thorax: Bilateral breath sounds clear to auscultation [] Abdomen: Bowel sounds normal, soft, no tenderness, no masses, no pulsatile masses. [] Skin: Warm, dry, no erythema, no rash. [] Back: No tenderness, no CVA tenderness. [] Extremities: No tenderness, no cyanosis, no clubbing, ROM intact, no edema. [] Neurologic: Alert and oriented X 3, normal motor function, normal sensory function, no focal deficits noted. [] Psychologic: Affect normal, judgement normal, mood normal. [] (LEONILA LOWERY APRN) Current Patient Data Vital Signs Vital Signs Date Time Temp Pulse Resp B/P (MAP) Pulse Ox O2 Delivery O2 Flow Rate FiO2 12/17/18 20:10 83 16 91 12/17/18 19:20 98.6 149/89 (109) Room Air 98.6 (LEONILA LIVE DO) EKG EKG [] (LEONILA LOWERY APRN) Radiology/Procedures Radiology/Procedures [] (LEONILA LOWERY APRN) Course & Med Decision Making Course & Med Decision Making Pertinent Labs and Imaging studies reviewed. (See chart for details) Will give medication and try to resolve headache. Gave intranasal medication and improved some. Will also give headache cocktail. 20:30: Patient states headache is gone. Will d/c home. (LEONILA LOWERY APRN) Dragon Disclaimer Dragon Disclaimer This electronic medical record was generated, in whole or in part, using a voice recognition dictation system. (LEONILA LOWERY APRN) Departure Departure Impression: Primary Impression: Migraine Disposition: HOME, SELF-CARE Condition: STABLE Referrals: DENG ROOT MD (PCP) Patient Instructions: Migraine Headache Additional Instructions: Thank you for visiting [facility]. We appreciate you trusting us with your care. If any additional problems come up don't hesitate to return to visit us. Please follow up with your primary care provider so they can plan additional care if needed and know about the problem that you had. If symptoms worsen come back to the Emergency Department. Any concerning symptoms that start such as chest pain, shortness of air, weakness or numbness on one side of the body, running high fevers or any other concerning symptoms return to the ER. Attending Signature Attending Signature I have reviewed the PA/FIELD HE[employer] OFFICER's note and plan of care. I was available for consultation as needed during the patient's visit in the emergency department. I agree with the clinical impression, plan, and disposition. (LEONILA LIVE DO) Problem Qualifiers Primary Impression: Migraine Migraine type: unspecified Status migrainosus presence: without status migrainosus Intractability: not intractable Qualified Codes: G43.909 - Migraine, unspecified, not intractable, without status migrainosus LEONILA LOWERY APRN Dec 17, 2018 19:35 LEONILA LIVE DO Dec 18, 2018 04:48
[2018-12-17] MEDS ORDERED: diphenhydrAMINE 50 MG/ML VIAL IVP ONE (19:45)
[2018-12-17] MEDS ORDERED: IV NORMAL SALINE 1000ML BAG 1,000 ML IV ONE (19:45)
[2018-12-17] MEDS ORDERED: PROCHLORPERAZINE 10 MG/2 ML VIAL. IV ONE (19:45)
[2018-12-17 20:10] VITALS: BP 165/88
== END 2018-12-17 20:40 | disposition home or self-care (01) ==
LOC: ER 19:37
DX: G43.909 Migraine, unspecified, not intractable, without status migrainosus (principal); E11.9 Type 2 diabetes mellitus without complications
CPT/HCPCS: 96372; 96374; 96375; 99284; J0780; J1200; J1885; J2001; J7030

== ENCOUNTER 2019-01-21 11:20 | Emergency (ER) | payer OTHER ==
[~2019-01-21] VITALS: Ht 160 cm; Wt 72.8 kg
[2019-01-21] MEDS ORDERED: diphenhydrAMINE HCL 25 MG CAPSULE PO STA (11:59)
[2019-01-21] MEDS ORDERED: KETOROLAC TROMETHAMINE 10 MG TABLET PO STA (11:59)
[2019-01-21] MEDS ORDERED: PROCHLORPERAZINE 10 MG/2 ML VIAL. IM STA (11:59)
--- NOTE | 2019-01-21 11:59 | PHYS DOC ---
Past Medical History Past Medical History: Diabetes-Type II, Kidney Stone, Migraines Additional Past Medical Histor: HEADACHES, K STONE Past Surgical History: Appendectomy Additional Past Surgical Histo: KIDNEY STONE Alcohol Use: None Drug Use: None Adult General Chief Complaint Chief Complaint: HEADACHE HPI HPI Patient is a 48 year old female that presents with headache this been ongoing since this morning. The patient has a history of migraine headaches. The patient states that she's been having headaches for 3 years. She rates his pain as 10 out of 10 in severity and sharp. She says the headache is located in the frontal part of her head. Denies any history trauma. Denies light sensitivity, no nausea. Review of Systems Review of Systems Constitutional: Denies fever or chills [] Eyes: Denies change in visual acuity, redness, or eye pain [] HENT: Denies nasal congestion or sore throat [] Respiratory: Denies cough or shortness of breath [] Cardiovascular: No additional information not addressed in HPI [] GI: Denies abdominal pain, nausea, vomiting, bloody stools or diarrhea [] : Denies dysuria or hematuria [] Musculoskeletal: Denies back pain or joint pain [] Integument: Denies rash or skin lesions [] Neurologic: Reports headache, denies focal weakness or sensory changes [] Endocrine: Denies polyuria or polydipsia [] Complete systems were reviewed and found to be within normal limits, except as documented in this note. Allergies Allergies Allergies Coded Allergies Type Severity Reaction Last Updated Verified No Known Drug Allergies 04/01/15 No Physical Exam Physical Exam Constitutional: Well developed, well nourished, no acute distress, non-toxic appearance. [] HENT: Normocephalic, atraumatic, bilateral external ears normal, oropharynx moist, no oral exudates, nose normal. [] Eyes: PERRLA, EOMI, conjunctiva normal, no discharge. [] Neck: Normal range of motion, no tenderness, supple, no stridor. [] Skin: Warm, dry, no erythema, no rash. [] Back: No tenderness, no CVA tenderness. [] Extremities: No tenderness, no cyanosis, no clubbing, ROM intact, no edema. [] Neurologic: Alert and oriented X 3, normal motor function, normal sensory function, no focal deficits noted. [] Psychologic: Affect normal, judgement normal, mood normal. [] Current Patient Data Vital Signs Vital Signs Date Time Temp Pulse Resp B/P (MAP) Pulse Ox O2 Delivery O2 Flow Rate FiO2 01/21/19 11:33 97.8 89 16 150/77 (101) 99 Room Air 97.8 Lab Values Laboratory Tests Test 01/21/19 11:31 POC Urine HCG, Qualitative Hcg negative (Negative) EKG EKG [] Radiology/Procedures Radiology/Procedures [] Course & Med Decision Making Course & Med Decision Making Pertinent Labs and Imaging studies reviewed. (See chart for details) Will give migraine cocktail. Discussed with patient that she needs to follow up with neurology as she keeps having ongoing migraine headaches. Dragon Disclaimer Dragon Disclaimer This electronic medical record was generated, in whole or in part, using a voice recognition dictation system. Departure Departure Impression: Primary Impression: Migraine headache Disposition: 01 HOME, SELF-CARE Condition: STABLE Referrals: DENG ROOT MD (PCP) RIA LI MD Patient Instructions: Recurrent Migraine Headache Additional Instructions: Thank you for visiting [facility]. We appreciate you trusting us with your care. If any additional problems come up don't hesitate to return to visit us. Please follow up with your primary care provider so they can plan additional care if needed and know about the problem that you had. If symptoms worsen come back to the Emergency Department. Any concerning symptoms that start such as chest pain, shortness of air, weakness or numbness on one side of the body, running high fevers or any other concerning symptoms return to the ER. Please follow up with her primary care doctor and neurology to get these migraine headaches under control. Problem Qualifiers Primary Impression: Migraine headache Migraine type: unspecified Status migrainosus presence: with status migrainosus Intractability: not intractable Qualified Codes: G43.901 - Migraine, unspecified, not intractable, with status migrainosus LEONILA LOWERY APRN Jan 21, 2019 11:59
== END 2019-01-21 12:20 | disposition home or self-care (01) ==
LOC: ER 11:20
DX: G43.901 Migraine, unspecified, not intractable, with status migrainosus (principal); E11.9 Type 2 diabetes mellitus without complications
CPT/HCPCS: 81025; 96372; 99283; J0780; Q0163

== ENCOUNTER 2019-04-01 20:55 | Emergency (ER) | payer OTHER ==
[~2019-04-01] VITALS: Ht 152.4 cm; Wt 75.0 kg
[2019-04-01 21:02] VITALS: BP 123/70
[2019-04-01] MEDS ORDERED: diphenhydrAMINE HCL 25 MG CAPSULE PO ONE (21:15)
[2019-04-01] MEDS ORDERED: KETOROLAC 60 MG/2 ML VIAL. IM ONE (21:15)
[2019-04-01] MEDS ORDERED: PROCHLORPERAZINE 10 MG/2 ML VIAL. IM ONE (21:15)
--- NOTE | 2019-04-01 21:15 | PHYS DOC ---
Past Medical History Past Medical History: Diabetes-Type II, Kidney Stone, Migraines Additional Past Medical Histor: HEADACHES, K STONE (OCTAVIO HURT APRN) Past Surgical History: Appendectomy Additional Past Surgical Histo: KIDNEY STONE (OCTAVIO HURT APRN) Smoking Status: Never Smoker Alcohol Use: None Drug Use: None (OCTAVIO HURT APRN) Attending Signature I have participated in the care of this patient and I have reviewed and agree with all pertinent clinical information above including history, exam, and recommendations. (STEPHANIE GRUBER MD) Adult General Chief Complaint Chief Complaint: HEADACHE HPI HPI Patient is a 49 year old female with history of diabetes type 2, migraine headaches, who presents to the ED today complaining of a 10 out of 10 frontal migraine headache that began yesterday. Patient denies any nausea vomiting. Reports this migraine is consistent with her normal migraines. Denies this being the worst headache in her life. States the headache was a gradual onset. (OCTAVIO HURT APRN) Review of Systems Review of Systems Constitutional: Denies fever or chills [] Eyes: Denies change in visual acuity, redness, or eye pain [] HENT: Denies nasal congestion or sore throat [] Respiratory: Denies cough or shortness of breath [] Cardiovascular: No additional information not addressed in HPI [] GI: Denies abdominal pain, nausea, vomiting, bloody stools or diarrhea [] : Denies dysuria or hematuria [] Musculoskeletal: Denies back pain or joint pain [] Integument: Denies rash or skin lesions [] Neurologic: Reports migraine headache, denies focal weakness or sensory changes [] All other systems were reviewed and found to be within normal limits, except as documented in this note. (OCTAVIO HURT APRN) Current Medications Current Medications Current Medications Medications (Trade) Dose Ordered Sig/Ministerio Start Time Stop Time Status Last Admin Dose Admin Diphenhydramine HCl (Benadryl) 25 mg 1X ONCE 04/01/19 21:15 04/01/19 21:16 DC 04/01/19 21:28 25 MG Ketorolac Tromethamine (Toradol Im) 60 mg 1X ONCE 04/01/19 21:15 04/01/19 21:16 DC 04/01/19 21:28 60 MG Prochlorperazine Edisylate (Compazine) 10 mg 1X ONCE 04/01/19 21:15 04/01/19 21:16 DC 04/01/19 21:28 10 MG (STEPHANIE GRUBER MD) Allergies Allergies Allergies Coded Allergies Type Severity Reaction Last Updated Verified No Known Drug Allergies 04/01/15 No (STEPHANIE GRUBER MD) Physical Exam Physical Exam Constitutional: Well developed, well nourished, no acute distress, non-toxic appearance. [] HENT: Normocephalic, atraumatic, bilateral external ears normal, oropharynx moist, no oral exudates, nose normal. [] Eyes: PERRLA, EOMI, conjunctiva normal, no discharge. [] Neck: Normal range of motion, no tenderness, supple, no stridor. [] Cardiovascular:Heart rate regular rhythm, no murmur [] Lungs & Thorax: Bilateral breath sounds clear to auscultation [] Abdomen: Bowel sounds normal, soft, no tenderness, no masses, no pulsatile masses. [] Skin: Warm, dry, no erythema, no rash. [] Back: No tenderness, no CVA tenderness. [] Extremities: No tenderness, no cyanosis, no clubbing, ROM intact, no edema. [] Neurologic: Alert and oriented X 3, normal motor function, normal sensory function, no focal deficits noted. Cranial nerves II through XII intact Psychologic: Affect normal, judgement normal, mood normal. [] (OCTAVIO HURT APRN) Current Patient Data Vital Signs Vital Signs Date Time Temp Pulse Resp B/P (MAP) Pulse Ox O2 Delivery O2 Flow Rate FiO2 04/01/19 21:02 98.2 85 16 123/70 (87) 99 Room Air 98.2 (STEPHANIE GRUBER MD) EKG EKG [] (OCTAVIO HURT APRN) Radiology/Procedures Radiology/Procedures [] (OCTAVIO HURT APRN) Course & Med Decision Making Course & Med Decision Making Pertinent Labs and Imaging studies reviewed. (See chart for details) This is a 49-year-old female patient with a migraine headache, given migraine cocktail. Discharged to home. Nothing unusual about her headache today. (OCTAVIO HURT APRN) Dragon Disclaimer Dragon Disclaimer This electronic medical record was generated, in whole or in part, using a voice recognition dictation system. (OCTAVIO HURT APRN) Departure Departure Impression: Primary Impression: Migraine headache Disposition: HOME, SELF-CARE Condition: STABLE Referrals: DENG ROOT MD (PCP) follow up in the course of next week Patient Instructions: Migraine Headache, [id number] Additional Instructions: You were evaluated in the medicine for migraine headache. Please take the prescribed medicines as needed for your migraine headaches. Follow-up with your doctor on Wednesday. Scripts Promethazine Hcl (PROMETHAZINE HCL) 12.5 Mg Tablet 1 TAB PO Q6-8HRS PRN for NAUSEA, #20 TAB 0 Refills Prov: OCTAVIO HURT APRN 04/01/19 Sumatriptan Succinate (IMITREX) 50 Mg Tablet 1 TAB PO UD, #9 TAB 1 Refill Take one tablet at the onset of a migraine headache and repeat in 2 hours if pain persist, do not take more than 2 tablets in 24 hours Prov: OCTAVIO HURT APRN 04/01/19 Problem Qualifiers Primary Impression: Migraine headache Migraine type: without aura Status migrainosus presence: without status migrainosus Intractability: not intractable Qualified Codes: G43.009 - Migraine without aura, not intractable, without status migrainosus OCTAVIO HURT APRN Apr 01, 2019 21:14 STEPHANIE GRUBER MD Apr 01, 2019 21:55
[2019-04-01] MEDS ORDERED: PROM12.58 PO (21:19)
[2019-04-01] MEDS ORDERED: SUMA50TA3 PO (21:19)
== END 2019-04-01 21:34 | disposition home or self-care (01) ==
LOC: ER 20:55
DX: G43.009 Migraine without aura, not intractable, without status migrainosus (principal); E11.9 Type 2 diabetes mellitus without complications
CPT/HCPCS: 96372; 99284; J0780; J1885; Q0163

== ENCOUNTER 2020-02-11 21:19 | Emergency (ER) | payer OTHER ==
[~2020-02-11] VITALS: Ht 160 cm; Wt 85.0 kg
[~2020-02-11 21:19] MED LIST changes: +PROM12.58 PO
[2020-02-11] MEDS ORDERED: CLIN150C14 PO (22:17)
[2020-02-11] MEDS ORDERED: HYDR-2761 PO (22:17)
--- NOTE | 2020-02-11 22:17 | ED.ADGEN ---
Past Medical History Past Medical History: Diabetes-Type II, Hypertension, Kidney Stone, Migraines Additional Past Medical Histor: HEADACHES, K STONE Past Surgical History: Appendectomy Additional Past Surgical Histo: KIDNEY STONE Smoking Status: Never Smoker Alcohol Use: None Drug Use: None General Adult EDM: Chief Complaint: DENTAL PROBLEM HPI: HPI: Patient is a 49 year old female who presents to the emergency department with complaints of right upper posterior dental pain for the last week. She states that the pain increased after dentist tried to extract the tooth 2 days ago unsuccessfully. She states that since this happened she has had increased pain and swelling in the right side of her face. Patient denies any bleeding or drainage from the site. She reports that she has an appointment with a different dentist tomorrow to have the tooth removed. She denies any fever, nausea, vomiting, shortness of breath, difficulty swallowing, or ear pain. Patient currently rates the pain a 10 out of 10 on pain scale, she denies any alleviating factors. Review of Systems: Review of Systems: Complete ROS is negative unless otherwise noted in HPI. Current Medications: Current Medications Medications (Trade) Dose Ordered Sig/Ministerio Start Time Stop Time Status Last Admin Dose Admin Acetaminophen/ Hydrocodone Bitart (Lortab 5/325) 1 tab 1X ONCE 02/11/20 22:15 02/11/20 22:16 UNV Clindamycin HCl (Cleocin) 300 mg 1X ONCE 02/11/20 22:15 02/11/20 22:16 UNV Diphenhydramine HCl (Benadryl) 25 mg 1X ONCE 02/11/20 22:15 02/11/20 22:16 UNV Ketorolac Tromethamine (Toradol Im) 60 mg 1X ONCE 02/11/20 22:15 02/11/20 22:16 UNV Allergies: Allergies: Allergies Coded Allergies Type Severity Reaction Last Updated Verified No Known Drug Allergies 04/01/15 No Physical Exam: PE: See Above Constitutional: Well developed, well nourished, no acute distress, non-toxic appearance. [] HENT: Normocephalic, atraumatic, bilateral external ears normal, bilateral TMs normal, nose normal; diffuse dental caries with gingival edema of the right upper quadrant no visible or palpable dental abscess, multiple broken teeth.. [] Eyes: PERRLA, EOMI, conjunctiva normal, no discharge. [] Neck: Normal range of motion, supple, no stridor. [] Cardiovascular:Heart rate regular rhythm Lungs & Thorax: Respirations even and unlabored, no retractions, no respiratory distress Skin: Warm, dry, no erythema, no rash. [] Extremities: No cyanosis, ROM intact, no edema. [] Neurologic: Alert and oriented X 3, no focal deficits noted. [] Psychologic: Affect normal, judgement normal, mood normal. [] Current Patient Data: Vital Signs: Vital Signs Date Time Temp Pulse Resp B/P (MAP) Pulse Ox O2 Delivery O2 Flow Rate FiO2 02/11/20 21:25 97.9 65 15 186/100 (128) 98 Room Air 97.9 EKG: EKG: [] Heart Score: Risk Factors: Risk Factors: DM, Current or recent (<one month) smoker, HTN, HLP, family history of CAD, obesity. Risk Scores: Score 0 - 3: 2.5% MACE over next 6 weeks - Discharge Home Score 4 - 6: 20.3% MACE over next 6 weeks - Admit for Clinical Observation Score 7 - 10: 72.7% MACE over next 6 weeks - Early Invasive Strategies Radiology/Procedures: Radiology/Procedures: [] Course & Med Decision Making: Course & Med Decision Making Pertinent Labs and Imaging studies reviewed. (See chart for details) [] Dragon Disclaimer: Dragon Disclaimer: This electronic medical record was generated, in whole or in part, using a voice recognition dictation system. Departure Departure Impression: Primary Impression: Infected dental caries Additional Impression: Dentalgia Disposition: 01 DC HOME SELF CARE/HOMELESS Condition: STABLE Referrals: DENG ROOT MD (PCP) Patient Instructions: Dental Caries, Dental Pain, [id number] Additional Instructions: Fill prescription(s) and use as directed. Follow up with dentist as planned to have the tooth extracted. Return to the ER symptoms worsen or fever develops. Scripts Hydrocodone Bit/Acetaminophen (HYDROCODONE-APAP 5-325 ) 1 Tab Tablet 1 TAB PO PRN Q6HRS PRN for PAIN for 3 Days, #10 TAB 0 Refills Prov: CAPRI CASANOVA APPRENTICE TECHNICIAN 02/11/20 Clindamycin Hcl (CLINDAMYCIN HCL) 150 Mg Capsule 300 MG PO QID for 7 Days, #56 CAP 0 Refills Prov: CAPRI CASANOVA APRN 02/11/20 Problem Qualifiers CAPRI CASANOVA APRN Feb 11, 2020 22:17
[2020-02-11] MEDS ORDERED: KETOROLAC 60 MG/2 ML VIAL. IM ONE (22:30)
[2020-02-11] MEDS ORDERED: CLINDAMYCIN HCL 150 MG CAPSULE. PO ONE (22:30)
[2020-02-11] MEDS ORDERED: HYDROcodone/APAP 5/325MG 1 TAB TABLET PO ONE (22:30)
[2020-02-11] MEDS ORDERED: diphenhydrAMINE HCL 25 MG CAPSULE PO ONE (22:30)
[2020-02-11 22:45] VITALS: BP 172/96
== END 2020-02-11 22:45 | disposition home or self-care (01) ==
LOC: ER 21:19
DX: K04.7 Periapical abscess without sinus (principal); E11.9 Type 2 diabetes mellitus without complications; I10 Essential (primary) hypertension; G43.909 Migraine, unspecified, not intractable, without status migrainosus
CPT/HCPCS: 96372; 99284; J1885; Q0163

== ENCOUNTER 2020-06-30 20:25 | Emergency (ER) | payer OTHER ==
[~2020-06-30] VITALS: Ht 152.4 cm; Wt 73.0 kg
[~2020-06-30 20:25] MED LIST changes: +CLIN150C15 PO; +HYDR-2761 PO
[2020-06-30] MEDS ORDERED: ONDA4TAB12 PO (20:43)
[2020-06-30] MEDS ORDERED: BUTA1TAB23 PO (20:43)
--- NOTE | 2020-06-30 20:44 | PHYS DOC ---
Past Medical History Past Medical History: Diabetes-Type II, Hypertension, Kidney Stone, Migraines Additional Past Medical Histor: HEADACHES, K STONE Past Surgical History: Appendectomy Additional Past Surgical Histo: KIDNEY STONE Smoking Status: Never Smoker Alcohol Use: None Drug Use: None General Adult EDM: Chief Complaint: HEADACHE HPI: HPI: Patient is a 50-year-old female with past medical history of migraine headaches presents with report of acute headache since last night. Spouse reports patient took 2 ibuprofen without significant improvement. Denies trauma. Denies fever or chills. Headache is frontal in nature which is typical for her. Patient with frequent ED visits for same. Patient denies significant change from prior episodes. Review of Systems: Review of Systems: Constitutional: Denies fever or chills Eyes: Denies redness or eye pain HENT: Denies nasal congestion or sore throat Respiratory: Denies cough or shortness of breath Cardiovascular: Denies chest pain or palpitations GI: Denies abdominal pain, nausea, or vomiting : Denies dysuria or hematuria Musculoskeletal: Denies back pain or joint pain Integument: Denies rash or skin lesions Neurologic: Reports headache; denies focal weakness or sensory changes Complete systems were reviewed and found to be within normal limits, except as documented in this note. Heart Score: C/O Chest Pain: N/A Allergies: Allergies: Allergies Coded Allergies Type Severity Reaction Last Updated Verified No Known Drug Allergies 06/30/20 No Physical Exam: PE: Constitutional: Well developed, well nourished, uncomfortable, non-toxic appearance HENT: Normocephalic, atraumatic Eyes: PERRL, EOMI, conjunctiva normal, no discharge, no nystagmus Neck: Normal range of motion, no tenderness, supple, no meningeal signs Lungs & Thorax: No respiratory distress, equal chest rise and fall Abdomen: Soft, no tenderness Skin: Warm, dry, no erythema, no rash Extremities: No tenderness, ROM intact, no edema Neurologic: Alert and oriented X 3, normal motor function, normal sensory function, no focal deficits noted Psychologic: Affect normal, judgment normal EKG: EKG: [] Radiology/Procedures: Radiology/Procedures: [] Course & Med Decision Making: Course & Med Decision Making Patient with chronic migraine headaches presents with acute exacerbation. Patient with frequent headaches requiring ED visit. Patient neurologically intact. No history of trauma. Afebrile. No meningeal signs noted. Symptomatic treatment provided. Patient stable for discharge with outpatient follow-up with PCP. Clinic list provided. Discussed findings and plan with patient and family, who acknowledge understanding and agreement. Claudio Disclaimer: Claudio Disclaimer: This electronic medical record was generated, in whole or in part, using a voice recognition dictation system. Departure Departure Impression: Primary Impression: Headache Qualified Codes: R51.9 - Headache, unspecified Disposition: HOME / SELF CARE / HOMELESS Condition: STABLE Referrals: DENG ROOT MD (PCP) RIA LI MD Patient Instructions: Headache, FAQs, Migraine Headache, [id number], Recurrent Migraine Headache Scripts Butalb/Acetaminophen/Caffeine ([id number]-[id number]-LFRF 50-325-40) 1 Each Tablet 1 EACH PO Q6HRS PRN for HEADACHE, #14 TAB Prov: LEONILA LIVE DO 06/30/20 Ondansetron (ONDANSETRON ODT) 4 Mg Tab.rapdis 1 TAB PO PRN Q6-8HRS PRN for NAUSEA, #16 TAB Prov: LEONILA LIVE DO 06/30/20 LEONILA LIVE DO June 30, 2020 20:44
[2020-06-30 21:00] VITALS: BP 169/81
[2020-06-30] MEDS ORDERED: KETOROLAC 30 MG/ML VIAL. IM ONE (21:00)
[2020-06-30] MEDS ORDERED: DEXAMETHASONE 4 MG TABLET PO ONE (21:00)
[2020-06-30] MEDS ORDERED: BUTALB/APAP/CAFEIN 50/325/40MG TABLET. PO ONE (21:00)
[2020-06-30] MEDS ORDERED: ONDANSETRON ODT 4 MG TAB.RAPDIS. PO ONE (21:00)
== END 2020-06-30 21:10 | disposition home or self-care (01) ==
LOC: ER 20:25
DX: G43.909 Migraine, unspecified, not intractable, without status migrainosus (principal); E11.9 Type 2 diabetes mellitus without complications; I10 Essential (primary) hypertension
CPT/HCPCS: 96372; 99284; J1885

== ENCOUNTER 2020-08-22 01:24 | Emergency (ER) | payer OTHER ==
[~2020-08-22] VITALS: Ht 157.5 cm; Wt 65.9 kg
[~2020-08-22 01:24] MED LIST changes: +ONDA4TAB12 PO
[2020-08-22 02:27] LABS: BASO # 0.1 x10^3/uL (0.0-0.2); BASO % 1 % (0-3); EOS # 0.2 x10^3/uL (0.0-0.7); EOS % 2 % (0-3); HEMATOCRIT 37.7 % (36.0-47.0); HEMOGLOBIN 12.7 g/dL (12.0-15.5); LYMPH # 4.2 x10^3/uL (1.0-4.8); LYMPH % 43 % (24-48); MEAN CORPUSCULAR HEMOGLOBIN 29 pg (25-35); MEAN CORPUSCULAR HGB CONC 34 g/dL (31-37); MEAN CORPUSCULAR VOLUME 87 fL (79-100); MONO # 0.7 x10^3/uL (0.0-1.1); MONO % 8 % (0-9); NEUT # 4.6 x10^3/uL (1.8-7.7); NEUT % 47 % (31-73); PLATELET COUNT 284 x10^3/uL (140-400); RED BLOOD COUNT 4.34 x10^6/uL (3.50-5.40); RED CELL DISTRIBUTION WIDTH 13.7 % (11.5-14.5); WHITE BLOOD COUNT 9.8 x10^3/uL (4.0-11.0)
[2020-08-22 02:29] LABS: BILIRUBIN,URINE NEGATIVE (NEG); CLARITY,URINE CLEAR; COLOR,URINE YELLOW; NITRITE,URINE NEGATIVE (NEG); PROTEIN,URINE >=300 mg/dL (NEG-TRACE); UROBILINOGEN,URINE 0.2 mg/dL (0.2 mg/dL)
[2020-08-22 02:37] LABS: BACTERIA,URINE MOD /HPF (0-FEW); RBC,URINE 0 /HPF (0-2)
[2020-08-22 02:38] LABS: CALCIUM 8.4 mg/dL (8.5-10.1); CREATININE 0.8 mg/dL (0.6-1.0); GFR 76.6
[2020-08-22 02:41] LABS: ALBUMIN 3.4 g/dL (3.4-5.0); ALBUMIN/GLOBULIN RATIO 0.9 (1.0-1.7); TOTAL BILIRUBIN 0.2 mg/dL (0.2-1.0); TOTAL PROTEIN 7.2 g/dL (6.4-8.2)
[2020-08-22] MEDS ORDERED: MORPHINE SULFATE 10 MG/ML VIAL. IV ONE ×2 (03:00→05:30)
[2020-08-22] MEDS ORDERED: IV NORMAL SALINE 1000ML BAG 1,000 ML IV ONE (03:00)
[2020-08-22] MEDS ORDERED: ONDANSETRON PF 4 MG/2 ML VIAL. IVP ONE (03:00)
[2020-08-22] MEDS ORDERED: CONTRAST GIVEN. MC PRN (03:30)
--- NOTE | 2020-08-22 03:53 | RAD ---
CT ABDOMEN+PELVIS W History: abdominal pain, elderly Comparison: None. Technique: After administration of intravenous contrast, helical CT of the abdomen and pelvis was per formed from the lung bases through the ischial tuberosities. Coronal and sagittal reconstructions wer e obtained. 75 mL of Isovue-370 were used. One or more of the following dose reduction techniques wer e utilized: Automated exposure control (AEC), Adjustment of mA and/or kV according to patient size, U se of iterative reconstruction technique such as ASiR, CT scan done according to ALARA and image gent ly/image wisely Abdomen Findings: The visualized lung bases are clear. Liver measures 21 cm craniocaudad. Diffuse hepatic steatosis. The gallbladder, pancreas, spleen, and bilateral adrenal glands are normal. Symmetric renal enhancement. There is no focal renal mass. There is no hydronephrosis. The visualized loops of small bowel are normal. The visualized loops of large bowel are normal. There is no evidence of bowel obstruction. Appendix is normal. There is no free fluid. There is no mesenteric or retroperitoneal adenopathy. The abdominal aorta is normal in caliber. Pelvis Findings: Urinary bladder is normal. Uterus is present. No pelvic free fluid. There is no pelvic or inguinal ad enopathy. There is no acute bony abnormality. IMPRESSION: No acute findings. Hepatomegaly and hepatic steatosis. Electronically signed by: Jatin Elliott MD (08/22/2020 3:50 AM) [facility]
[2020-08-22] MEDS ORDERED: IOHEXOL 300 MG/ML 100ML VIAL. IV ONE (04:00)
[2020-08-22] MEDS ORDERED: IOHEXOL 240 MG/ML 50ML VIAL. PO ONE (04:00)
[2020-08-22] MEDS ORDERED: ESOM20CA PO (04:29)
[2020-08-22] MEDS ORDERED: ONDA4TAB12 PO (04:29)
[2020-08-22] MEDS ORDERED: LIDO:MAALOX 1:1 20 ML SINGLE DOSE. SWSW ONE (04:30)
[2020-08-22] MEDS ORDERED: HYOSCYAMINE 0.125 MG TAB.RAPDIS PO ONE (04:30)
--- NOTE | 2020-08-22 04:30 | ED.ADGEN ---
Past Medical History Past Medical History: Diabetes-Type II, Hypertension, Kidney Stone, Migraines Additional Past Medical Histor: HEADACHES, K STONE Past Surgical History: Appendectomy Additional Past Surgical Histo: KIDNEY STONE Smoking Status: Never Smoker Alcohol Use: None Drug Use: None General Adult EDM: Chief Complaint: ABDOMINAL PAIN HPI: HPI: Patient is a 50 year old [f__sex] who presents with [] Review of Systems: Review of Systems: Constitutional: Denies fever or chills. [] Eyes: Denies change in visual acuity. [] HENT: Denies nasal congestion or sore throat. [] Respiratory: Denies cough or shortness of breath. [] Cardiovascular: Denies chest pain or edema. [] GI: Denies abdominal pain, nausea, vomiting, bloody stools or diarrhea. [] : Denies dysuria. [] Musculoskeletal: Denies back pain or joint pain. [] Integument: Denies rash. [] Neurologic: Denies headache, focal weakness or sensory changes. [] Endocrine: Denies polyuria or polydipsia. [] Lymphatic: Denies swollen glands. [] Psychiatric: Denies depression or anxiety. [] Current Medications: Current Medications Medications (Trade) Dose Ordered Sig/Ministerio Start Time Stop Time Status Last Admin Dose Admin Hyoscyamine (Anaspaz) 0.125 mg 1X ONCE 08/22/20 04:30 08/22/20 04:31 DC 08/22/20 04:18 0.125 MG Info (CONTRAST GIVEN -- Rx MONITORING) 1 each PRN DAILY PRN 08/22/20 03:30 08/24/20 03:29 Iohexol (Omnipaque 240 Mg/ml) 30 ml 1X ONCE 08/22/20 04:00 08/22/20 04:01 DC 08/22/20 03:20 30 ML Iohexol (Omnipaque 300 Mg/ml) 75 ml 1X ONCE 08/22/20 04:00 08/22/20 04:01 DC 08/22/20 03:20 75 ML Morphine Sulfate (Morphine Sulfate) 5 mg 1X ONCE 08/22/20 03:00 08/22/20 03:01 DC 08/22/20 02:28 5 MG Multi-Ingredient Mouthwash/Gargle (Gi Cocktail) 20 ml 1X ONCE 08/22/20 04:30 08/22/20 04:31 DC 08/22/20 04:18 20 ML Ondansetron HCl (Zofran) 4 mg 1X ONCE 08/22/20 03:00 08/22/20 03:01 DC 08/22/20 02:28 4 MG Sodium Chloride 1,000 ml @ 1,000 mls/hr 1X ONCE 08/22/20 03:00 08/22/20 03:59 DC 08/22/20 02:25 1,000 MLS/HR Allergies: Allergies: Allergies Coded Allergies Type Severity Reaction Last Updated Verified No Known Drug Allergies 06/30/20 No Physical Exam: PE: Constitutional: Well developed, well nourished, no acute distress, non-toxic appearance. [] HENT: Normocephalic, atraumatic, bilateral external ears normal, oropharynx moist, no oral exudates, nose normal. [] Eyes: PERRLA, EOMI, conjunctiva normal, no discharge. [] Neck: Normal range of motion, no tenderness, supple, no stridor. [] Cardiovascular:Heart rate regular rhythm, no murmur [] Lungs & Thorax: Bilateral breath sounds clear to auscultation [] Abdomen: Bowel sounds normal, soft, no tenderness, no masses, no pulsatile masses. [] Skin: Warm, dry, no erythema, no rash. [] Back: No tenderness, no CVA tenderness. [] Extremities: No tenderness, no cyanosis, no clubbing, ROM intact, no edema. [] Neurologic: Alert and oriented X 3, normal motor function, normal sensory function, no focal deficits noted. [] Psychologic: Affect normal, judgement normal, mood normal. [] Current Patient Data: Labs: Laboratory Tests Test 08/22/20 01:30 08/22/20 01:36 08/22/20 01:40 Urine Collection Type Unknown Urine Color Yellow Urine Clarity Clear Urine pH 6.0 (<5.0-8.0) Urine Specific [place] 1.025 (1.000-1.030) Urine Protein >=300 mg/dL (NEG-TRACE) Urine Glucose (UA) >=1000 mg/dL (NEG) Urine Ketones (Stick) Negative mg/dL (NEG) Urine Blood Negative (NEG) Urine Nitrite Negative (NEG) Urine Bilirubin Negative (NEG) Urine Urobilinogen Dipstick 0.2 mg/dL (0.2 mg/dL) Urine Leukocyte Esterase Negative (NEG) Urine RBC 0 /HPF (0-2) Urine WBC 1-4 /HPF (0-4) Urine Squamous Epithelial Cells Mod /LPF Urine Bacteria Mod /HPF (0-FEW) POC Urine HCG, Qualitative Hcg negative (Negative) White Blood Count 9.8 x10^3/uL (4.0-11.0) Red Blood Count 4.34 x10^6/uL (3.50-5.40) Hemoglobin 12.7 g/dL (12.0-15.5) Hematocrit 37.7 % (36.0-47.0) Mean Corpuscular Volume 87 fL (79-100) Mean Corpuscular Hemoglobin 29 pg (25-35) Mean Corpuscular Hemoglobin Concent 34 g/dL (31-37) Red Cell Distribution Width 13.7 % (11.5-14.5) Platelet Count 284 x10^3/uL (140-400) Neutrophils (%) (Auto) 47 % (31-73) Lymphocytes (%) (Auto) 43 % (24-48) Monocytes (%) (Auto) 8 % (0-9) Eosinophils (%) (Auto) 2 % (0-3) Basophils (%) (Auto) 1 % (0-3) Neutrophils # (Auto) 4.6 x10^3/uL (1.8-7.7) Lymphocytes # (Auto) 4.2 x10^3/uL (1.0-4.8) Monocytes # (Auto) 0.7 x10^3/uL (0.0-1.1) Eosinophils # (Auto) 0.2 x10^3/uL (0.0-0.7) Basophils # (Auto) 0.1 x10^3/uL (0.0-0.2) Sodium Level 137 mmol/L (136-145) Potassium Level 4.0 mmol/L (3.5-5.1) Chloride Level 103 mmol/L (98-107) Carbon Dioxide Level 25 mmol/L (21-32) Anion Gap 9 (6-14) Blood Urea Nitrogen 12 mg/dL (7-20) Creatinine 0.8 mg/dL (0.6-1.0) Estimated GFR (Cockcroft-Gault) 76.6 BUN/Creatinine Ratio 15 (6-20) Glucose Level 256 mg/dL (70-99) H Calcium Level 8.4 mg/dL (8.5-10.1) L Total Bilirubin 0.2 mg/dL (0.2-1.0) Aspartate Amino Transferase (AST) 16 U/L (15-37) Alanine Aminotransferase (ALT) 25 U/L (14-59) Alkaline Phosphatase 62 U/L (46-116) Total Protein 7.2 g/dL (6.4-8.2) Albumin 3.4 g/dL (3.4-5.0) Albumin/Globulin Ratio 0.9 (1.0-1.7) L Lipase 158 U/L (73-393) Laboratory Tests 08/22/20 01:40 Laboratory Tests 08/22/20 01:40 Vital Signs: Vital Signs Date Time Temp Pulse Resp B/P (MAP) Pulse Ox O2 Delivery O2 Flow Rate FiO2 08/22/20 04:16 104 28 175/93 (120) 100 Room Air 08/22/20 01:25 98.4 98.4 EKG: EKG: [] Heart Score: C/O Chest Pain: N/A Risk Factors: Risk Factors: DM, Current or recent (<one month) smoker, HTN, HLP, family history of CAD, obesity. Risk Scores: Score 0 - 3: 2.5% MACE over next 6 weeks - Discharge Home Score 4 - 6: 20.3% MACE over next 6 weeks - Admit for Clinical Observation Score 7 - 10: 72.7% MACE over next 6 weeks - Early Invasive Strategies Radiology/Procedures: Radiology/Procedures: [] Course & Med Decision Making: Course & Med Decision Making Pertinent Labs and Imaging studies reviewed. (See chart for details) [] Dragon Disclaimer: Dragon Disclaimer: This electronic medical record was generated, in whole or in part, using a voice recognition dictation system. Departure Departure Impression: Primary Impression: Abdominal pain Disposition: HOME / SELF CARE / HOMELESS Condition: STABLE Referrals: DENG ROOT MD (PCP) Patient Instructions: Abdominal Pain Scripts Esomeprazole Magnesium (NEXIUM CAPSULE) 20 Mg Capsule.dr 1 CAP PO DAILY, #14 CAP 0 Refills Prov: STEPHAN FOREMAN MD 08/22/20 Ondansetron (ONDANSETRON ODT) 4 Mg Tab.rapdis 1 TAB PO PRN Q6-8HRS, #16 TAB Prov: STEPHAN FOREMAN MD 08/22/20 STEPHAN FOREMAN MD Aug 22, 2020 04:29
[2020-08-22 05:16] VITALS: BP 170/80
== END 2020-08-22 05:24 | disposition home or self-care (01) ==
LOC: ER 01:24
DX: R10.13 Epigastric pain (principal); R30.0 Dysuria; R11.0 Nausea; E11.9 Type 2 diabetes mellitus without complications; I10 Essential (primary) hypertension; G43.909 Migraine, unspecified, not intractable, without status migrainosus; Z87.442 Personal history of urinary calculi; Z90.89 Acquired absence of other organs
CPT/HCPCS: 36415; 74177; 80053; 81001; 81025; 83690; 84484; 85025; 96361; 96374; 96375; 96376; 99285; J2270; J2405; J7030; Q9966; Q9967

== ENCOUNTER 2020-10-09 20:51 | Emergency (ER) | payer OTHER ==
[~2020-10-09] VITALS: Ht 152.4 cm; Wt 72.0 kg
[~2020-10-09 20:51] MED LIST changes: -CLIN150C15 PO; +CLIN150C16 PO; +ESOM20CA PO
[2020-10-09] MEDS ORDERED: PROCHLORPERAZINE 10 MG/2 ML VIAL. IV ONE (22:15)
[2020-10-09] MEDS ORDERED: diphenhydrAMINE 50 MG/ML VIAL IVP ONE (22:15)
[2020-10-09] MEDS ORDERED: KETOROLAC 30 MG/ML VIAL. IVP ONE (22:15)
--- NOTE | 2020-10-09 22:19 | PHYS DOC ---
Past Medical History Past Medical History: Diabetes-Type II, Hypertension, Kidney Stone, Migraines Additional Past Medical Histor: HEADACHES, K STONE Past Surgical History: Appendectomy Additional Past Surgical Histo: KIDNEY STONE Smoking Status: Never Smoker Alcohol Use: None Drug Use: None General Adult EDM: Chief Complaint: HEADACHE HPI: HPI: Patient is a 50 year old female with the past medical history of diabetes and migraine headaches presents with the chief complaint of migraine. Migraine has been on going x 1 hours. Pain is located in the frontal region. Has taken OTC motrin with no relief. Review of Systems: Review of Systems: Constitutional: Denies fever or chills. [] Eyes: Denies change in visual acuity. [] HENT: Denies nasal congestion or sore throat. [] Respiratory: Denies cough or shortness of breath. [] Cardiovascular: Denies chest pain or edema. [] GI: Denies abdominal pain, nausea, vomiting, bloody stools or diarrhea. [] : Denies dysuria. [] Musculoskeletal: Denies back pain or joint pain. [] Integument: Denies rash. [] Neurologic: Denies , focal weakness or sensory changes. [positive headache] Endocrine: Denies polyuria or polydipsia. [] Lymphatic: Denies swollen glands. [] Psychiatric: Denies depression or anxiety. [] Heart Score: C/O Chest Pain: N/A Risk Factors: Risk Factors: DM, Current or recent (<one month) smoker, HTN, HLP, family history of CAD, obesity. Risk Scores: Score 0 - 3: 2.5% MACE over next 6 weeks - Discharge Home Score 4 - 6: 20.3% MACE over next 6 weeks - Admit for Clinical Observation Score 7 - 10: 72.7% MACE over next 6 weeks - Early Invasive Strategies Current Medications: Current Medications Medications (Trade) Dose Ordered Sig/Ministerio Start Time Stop Time Status Last Admin Dose Admin Diphenhydramine HCl (Benadryl) 50 mg 1X ONCE 10/09/20 22:15 10/09/20 22:16 DC Ketorolac Tromethamine (Toradol 30mg Vial) 30 mg 1X ONCE 10/09/20 22:15 10/09/20 22:16 DC Prochlorperazine Edisylate (Compazine) 10 mg 1X ONCE 8/18/21 22:15 10/09/20 22:16 DC Allergies: Allergies: Allergies Coded Allergies Type Severity Reaction Last Updated Verified No Known Drug Allergies 06/30/20 No Physical Exam: PE: Constitutional: Well developed, well nourished, no acute distress, non-toxic appearance. [] HENT: Normocephalic, atraumatic, bilateral external ears normal, oropharynx moist, no oral exudates, nose normal. [] Eyes: PERRLA, EOMI, conjunctiva normal, no discharge. [] Neck: Normal range of motion, no tenderness, supple, no stridor. [] Cardiovascular:Heart rate regular rhythm, no murmur [] Lungs & Thorax: Bilateral breath sounds clear to auscultation [] Abdomen: Bowel sounds normal, soft, no tenderness, no masses, no pulsatile masses. [] Skin: Warm, dry, no erythema, no rash. [] Back: No tenderness, no CVA tenderness. [] Extremities: No tenderness, no cyanosis, no clubbing, ROM intact, no edema. [] Neurologic: Alert and oriented X 3, normal motor function, normal sensory function, no focal deficits noted. [] Psychologic: Affect normal, judgement normal, mood normal. [] Current Patient Data: Vital Signs: Vital Signs Date Time Temp Pulse Resp B/P (MAP) Pulse Ox O2 Delivery O2 Flow Rate FiO2 10/09/20 21:20 98.7 92 16 148/90 (110) 100 Room Air 98.7 EKG: EKG: [] Radiology/Procedures: Radiology/Procedures: [] Course & Med Decision Making: Course & Med Decision Making Pertinent Labs and Imaging studies reviewed. (See chart for details) [] Patient was evaluated for chief complaint. Treatment included Toradol Benadryl Compazine and IV fluids. Patient was observed when reevaluated she was asleep. Patient awakened states her headache is greatly improved and she feels comfortable going home. Patient discharged in the care of her . Claudio Disclaimer: Claudio Disclaimer: This electronic medical record was generated, in whole or in part, using a voice recognition dictation system. Departure Departure Impression: Primary Impression: Migraine headache Disposition: HOME / SELF CARE / HOMELESS Condition: STABLE Referrals: DENG ROOT MD (PCP) Patient Instructions: Migraine Headache VIDHYA MI I DO Oct 09, 2020 22:19
[2020-10-09] MEDS ORDERED: IV NORMAL SALINE 1000ML BAG 1,000 ML IV ONE (22:30)
[2020-10-09 22:55] VITALS: BP 141/71
== END 2020-10-09 23:25 | disposition home or self-care (01) ==
LOC: ER 20:51
DX: G43.909 Migraine, unspecified, not intractable, without status migrainosus (principal); I10 Essential (primary) hypertension; E11.9 Type 2 diabetes mellitus without complications
CPT/HCPCS: 96361; 96374; 96375; 99284; J0780; J1200; J1885; J7030

== ENCOUNTER 2020-10-27 19:27 | Emergency (ER) | payer OTHER ==
[~2020-10-27] VITALS: Ht 152.4 cm; Wt 72.0 kg
[2020-10-27] MEDS ORDERED: diphenhydrAMINE HCL 25 MG CAPSULE PO ONE (23:00)
[2020-10-27] MEDS ORDERED: KETOROLAC 60 MG/2 ML VIAL. IM ONE (23:00)
[2020-10-27] MEDS ORDERED: PROCHLORPERAZINE 10 MG/2 ML VIAL. IM ONE (23:00)
[2020-10-27] MEDS ORDERED: BUTA1TAB23 PO (23:15)
[2020-10-27] MEDS ORDERED: PROC10TA57 PO (23:15)
--- NOTE | 2020-10-27 23:17 | PHYS DOC ---
Past Medical History Past Medical History: Diabetes-Type II, Hypertension, Kidney Stone, Migraines Additional Past Medical Histor: HEADACHES, K STONE ([employer]IO H[employer]T [employer]) Past Surgical History: Appendectomy Additional Past Surgical Histo: KIDNEY STONE ([employer]T [employer]) Smoking Status: Never Smoker Alcohol Use: None Drug Use: None ([employer]IO H[employer]T [employer]) General Adult EDM: Chief Complaint: HEADACHE HPI: HPI: Patient is a 50 year old female with a history of chronic migraine headaches, hypertension, diabetes type 2 who presents to the ED today complaining of a 10 out of 10 throbbing frontal migraine headache with nausea, symptoms began this morning. Patient is also complaining of photophobia. Patient denies this being the worst headache in her life. Denies anything relieving the headache but states noise and light exacerbates the headache. (OCT[employer]IO H[employer]T [employer]) Review of Systems: Review of Systems: Constitutional: Denies fever or chills. [] Eyes: Denies change in visual acuity. [] HENT: Denies nasal congestion or sore throat. [] Respiratory: Denies cough or shortness of breath. [] Cardiovascular: Denies chest pain or edema. [] GI: Denies abdominal pain, nausea, vomiting, bloody stools or diarrhea. [] : Denies dysuria. [] Musculoskeletal: Denies back pain or joint pain. [] Integument: Denies rash. [] Neurologic: Reports migraine headache, denies focal weakness or sensory changes. [] Psychiatric: Denies depression or anxiety. [] ([employer]) Heart Score: C/O Chest Pain: N/A Risk Factors: Risk Factors: DM, Current or recent (<one month) smoker, HTN, HLP, family history of CAD, obesity. Risk Scores: Score 0 - 3: 2.5% MACE over next 6 weeks - Discharge Home Score 4 - 6: 20.3% MACE over next 6 weeks - Admit for Clinical Observation Score 7 - 10: 72.7% MACE over next 6 weeks - Early Invasive Strategies ([employer]) Current Medications: Current Medications Medications (Trade) Dose Ordered Sig/Ministerio Start Time Stop Time Status Last Admin Dose Admin Diphenhydramine HCl (Benadryl) 25 mg 1X ONCE 10/27/20 23:00 9/5/21 23:02 DC Ketorolac Tromethamine (Toradol Im) 60 mg 1X ONCE 10/27/20 23:00 10/27/20 23:02 DC Prochlorperazine Edisylate (Compazine) 10 mg 1X ONCE 10/27/20 23:00 10/27/20 23:02 DC ([employer]) Allergies: Allergies: Allergies Coded Allergies Type Severity Reaction Last Updated Verified No Known Drug Allergies 06/30/20 No ([employer]) Physical Exam: PE: Constitutional: Well developed, well nourished, no acute distress, non-toxic appearance. [] HENT: Normocephalic, atraumatic, bilateral external ears normal, oropharynx moist, no oral exudates, nose normal. [] Eyes: PERRLA, EOMI, conjunctiva normal, no discharge. [] Neck: Normal range of motion, no tenderness, supple, no stridor. [] Cardiovascular:Heart rate regular rhythm, no murmur [] Lungs & Thorax: Bilateral breath sounds clear to auscultation [] Abdomen: Bowel sounds normal, soft, no tenderness, no masses, no pulsatile masses. [] Skin: Warm, dry, no erythema, no rash. [] Back: No tenderness, no CVA tenderness. [] Extremities: No tenderness, no cyanosis, no clubbing, ROM intact, no edema. [] Neurologic: Alert and oriented X 3, normal motor function, normal sensory funct ion, no focal deficits noted. Cranial nerves II through XII intact Psychologic: Affect normal, judgement normal, mood normal. [] ([employer]) Current Patient Data: Vital Signs: Vital Signs Date Time Temp Pulse Resp B/P (MAP) Pulse Ox O2 Delivery O2 Flow Rate FiO2 10/27/20 19:45 98.1 85 20 147/91 (110) 97 Room Air 98.1 ([employer]) EKG: EKG: [] ([employer]) Radiology/Procedures: Radiology/Procedures: [] ([employer]T [employer]) Course & Med Decision Making: Course & Med Decision Making Pertinent Labs and Imaging studies reviewed. (See chart for details) This a 50-year-old female patient well-known to this ED presenting today complaining of migraine headaches. There is nothing unusual about her migraine headache today. Was given Benadryl Compazine and Toradol. Symptoms relieved. Discharge to home. Follow-up with PCP next week (OCTAVIO HURT APRN) Claudio Disclaimer: Dragon Disclaimer: This electronic medical record was generated, in whole or in part, using a voice recognition dictation system. (OCTAVIO HURT APRN) Departure Departure Impression: Primary Impression: Migraine headache Qualified Codes: G43.009 - Migraine without aura, not intractable, without status migrainosus Disposition: HOME / SELF CARE / HOMELESS Condition: STABLE Referrals: DENG ROOT MD (PCP) Follow-up next week Patient Instructions: Migraine Headache Additional Instructions: You were seen for a migraine headache, please follow-up with your primary care doctor in 1 to 2 weeks. Take the prescribed medications as ordered. Come back to the ED at any point symptoms worsen Scripts Prochlorperazine Maleate (Compazine) 10 Mg Tablet 1 TAB PO Q6HRS, #30 TAB 0 Refills Prov: OCTAVIO HURT Annabel ALANIS 10/27/20 Butalb/Acetaminophen/Caffeine (EFYHRG-[id number]-OBUE 50-325-40) 1 Each Tablet 1 EACH PO Q6HRS PRN for MIGRAINE HEADACHE, #30 TAB Prov: SANDRAJESSEOCTAVIO APRN 10/27/20 Attending Signature Attending Signature I have reviewed the PA/PAPER [employer]INE OPERATOR's note and plan of care. I was available for consultation as needed during the patient's visit in the emergency department. I agree with the clinical impression, plan, and disposition. (LEONILA LIVE DO) OCTAVIO HURT APRN Oct 27, 2020 23:17 LEONILA LIVE DO Oct 28, 2020 00:36
[2020-10-27 23:29] VITALS: BP 167/99
== END 2020-10-27 23:30 | disposition home or self-care (01) ==
LOC: ER 19:27
DX: G43.009 Migraine without aura, not intractable, without status migrainosus (principal); E11.9 Type 2 diabetes mellitus without complications; I10 Essential (primary) hypertension
CPT/HCPCS: 96372; 99284; J0780; J1885; Q0163

== ENCOUNTER 2021-01-12 23:55 | Emergency (ER) | payer OTHER ==
[~2021-01-12] VITALS: Ht 152.4 cm; Wt 74.6 kg
[~2021-01-12 23:55] MED LIST changes: +PROC10TA57 PO
--- NOTE | 2021-01-13 01:32 | PHYS DOC ---
Past Medical History Past Medical History: Diabetes-Type II, Hypertension, Kidney Stone, Migraines Additional Past Medical Histor: HEADACHES, K STONE Past Surgical History: Appendectomy Additional Past Surgical Histo: KIDNEY STONE Smoking Status: Never Smoker Alcohol Use: None Drug Use: None General Adult HPI: HPI: Patient is a 50 year old female who presents with report of left sided neck pain, perception of left sided neck swelling, sore throat and odynophagia symptoms. She denies fever, chills, headache, cough, dyspnea. She is able to swallow fluids, saliva and solid food. She denies any trauma or injury to her throat or neck area. She denies any recent sick contacts. She is able to eat and drink without difficulty. She does have diabetes, but she reports no episodes of hypoglycemia. No overlying skin redness or wounds reported. No neck stiffness. She denies numbness or tingling or motor weakness of her upper or lower extremities. Review of Systems: Review of Systems: Constitutional: Denies fever or chills. [] HENT: Denies nasal congestion. She does report sore throat and odynophagia. Respiratory: Denies cough or shortness of breath. [] Cardiovascular: Denies chest pain or edema. [] GI: Denies abdominal pain, nausea, vomiting Musculoskeletal: Denies back pain or joint pain. She does report left-sided soft tissue lateral anterior neck pain Integument: Denies rash. [] Neurologic: Denies headache, focal weakness or sensory changes. [] Endocrine: Denies polyuria or polydipsia. [] Lymphatic: She feels subjectively like her glands are swollen on the left side of her neck. Psychiatric: Denies depression or anxiety. [] Heart Score: C/O Chest Pain: No Risk Factors: Risk Factors: DM, Current or recent (<one month) smoker, HTN, HLP, family history of CAD, obesity. Risk Scores: Score 0 - 3: 2.5% MACE over next 6 weeks - Discharge Home Score 4 - 6: 20.3% MACE over next 6 weeks - Admit for Clinical Observation Score 7 - 10: 72.7% MACE over next 6 weeks - Early Invasive Strategies Allergies: Allergies: Allergies Coded Allergies Type Severity Reaction Last Updated Verified No Known Drug Allergies 06/30/20 No Physical Exam: PE: Constitutional: Well developed, well nourished, no acute distress, non-toxic appearance. [] HENT: Normocephalic, atraumatic, oropharynx is patent, clear, uvula midline, no pharyngeal erythema, edema, swelling. Mucous membranes are moist. No oropharyngeal, oral, lingula abnormality noted. External ears are normal caro aterally. TMs are clear bilaterally. No drooling or trismus. No facial edema. Eyes: Sclera are clear. Conjunctive are clear, no injection. Neck: Trachea is midline. No meningismus. No midline tenderness or step-offs. Full painless range of motion of her neck. There is soft tissue tenderness and some questionable soft tissue swelling of her left mid sternocleidomastoid muscle/soft tissue. No warmth or erythema. Questionable subtle shotty anterior cervical adenopathy. Thyroid is nontender, not obviously palpable. Cardiovascular:Heart rate regular rhythm, +2 radial pulses bilaterally Lungs & Thorax: Bilateral breath sounds clear to auscultation, no rales, rhonchi or wheezes. No stridor. Equal chest rise. No evidence of distress. Abdomen: Diminished soft, nondistended, nontender. Skin: Warm, dry, no erythema, no rash. No evidence of any warmth or erythema or overlying rash of the neck area. Back: No deformity, full range of motion Extremities: No tenderness, no cyanosis, no clubbing, ROM intact, no edema. No calf tenderness. Neurologic: Alert and oriented X 3, normal motor function, normal sensory function, no focal deficits noted. No facial asymmetry. Speech is clear and fluent. Gait is steady. Psychologic: Affect normal, judgement normal, mood normal. [] EKG: EKG: [] Radiology/Procedures: Radiology/Procedures: IMAGING REPORT Signed PATIENT: JUDITH STOREY ACCOUNT: [id number] : 1970 LOCATION: ER AGE: 50 SEX: F EXAM STATUS: REG ER ORD. PHYSICIAN: MISTI LUGO DO REASON: left neck pain, swelling, odynophagia, OMNI 300 75 ML IV PROCEDURE: CT SOFT TISSUE NECK W/CONTRAST CT NECK SOFT TISSUE WITH IV CONTRAST History: Left neck pain, swelling, odynophagia. Comparison: None. Technique: CT of the neck with intravenous contrast. Findings: Mucosa: Relative prominence of the adenoidal and pharyngeal lymphoid tissue. No mass in the nasal cavity, nasopharynx, oral cavity, oropharynx, larynx, hypopharynx, or proximal trachea/esophagus. Oral cavity is obscured by dental artifact. Glands: Normal bilateral parotid, submandibular, and thyroid glands. Nodes: No pathologically enlarged or necrotic cervical lymph nodes. Vessels: Vascular structures are patent. No carotid space mass. 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 Other: No suspicious lesion in the lung apices. Impression: 1. No adenopathy, mass or abscess identified in the neck. Symmetrically prominent adenoidal and pharyngeal tonsillar lymphoid tissue may be reactive. 2. 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 ------ Exposure: One or more of the following individualized dose reduction techniques were utilized for this examination: 1. Automated exposure control 2. Adjustment of the mA and/or kV according to patient size 3. Use of iterative reconstruction technique. Electronically signed by: Elpidio Myers MD (01/13/2021 3:16 AM) [id number] DICTATED and SIGNED BY: ELPIDIO MYERS MD DATE: 01/13/21 [id number] 0 Course & Med Decision Making: Course & Med Decision Making Pertinent Labs and Imaging studies reviewed. (See chart for details) The patient is given a dose of IV morphine here. She is resting comfortably, reports improvement of pain. She manifests no evidence of distress. Emergency department work-up, including laboratory evaluation and imaging studies are unremarkable for any acute life-threatening pathology. Her physical exam findings are subtle. I asked her again if she had any possible history of trauma or injury to her neck, and she continues tonight. There is no evidence of obvious infectious process noted. No evidence of airway compromise noted. No current indication for further imaging, invasive exams or admission at this time, based on current clinical presentation. I did strongly encourage her to follow-up with her primary care physician for follow-up, and hopeful resolution. If her symptoms persist, she should discuss outpatient ENT consultation. Return precautions are given. She is comfortable with this plan of care. Dragon Disclaimer: Dragkenisha Disclaimer: This electronic medical record was generated, in whole or in part, using a voice recognition dictation system. Departure Departure Impression: Primary Impression: Neck pain on left side Additional Impressions: Sore throat Odynophagia Disposition: HOME / SELF CARE / HOMELESS Condition: STABLE Referrals: DENG ROOT MD (PCP) Patient Instructions: Soft Tissue Injury of the Neck, Sore Throat Additional Instructions: Take the pain medicine as needed/as directed. Eat a bland, soft diet. Avoid sharp or crunchy foods. Return to the ER for temperature 100.4 or higher, severe skin redness, more severe swelling of your neck, more severe uncontrolled pain, shortness of breath, chest pain, if you are unable to swallow or control your own secretions or for any other concerns you may have. Your laboratory exams are normal here today. Your CAT scan does not show any obvious abnormalities. Please contact your primary care physician for follow-up and for further treatment. Scripts Hydrocodone Bit/Acetaminophen (HYDROCODONE-APAP 5-325 ) 1 Tab Tablet 1 TAB PO PRN Q6HRS PRN for PAIN, #15 TAB 0 Refills Prov: MISTI LUGO DO 01/13/21 MISTI LUGO DO Jan 13, 2021 01:32
[2021-01-13 01:56] LABS: BILIRUBIN,URINE NEGATIVE (NEG); CLARITY,URINE TURBID; COLOR,URINE AMBER; NITRITE,URINE NEGATIVE (NEG); PROTEIN,URINE >=300 mg/dL (NEG-TRACE); UROBILINOGEN,URINE 0.2 mg/dL (0.2 mg/dL)
[2021-01-13] MEDS ORDERED: MORPHINE SULFATE 4 MG/ML INJ. IVP ONE (02:00)
[2021-01-13 02:01] LABS: BACTERIA,URINE MANY /HPF (0-FEW); HYALINE CASTS, URINE MODERATE /HPF; RBC,URINE 0 /HPF (0-2)
[2021-01-13 02:20] LABS: BASO # 0.1 x10^3/uL (0.0-0.2); BASO % 1 % (0-3); EOS # 0.3 x10^3/uL (0.0-0.7); EOS % 2 % (0-3); HEMATOCRIT 37.9 % (36.0-47.0); HEMOGLOBIN 12.4 g/dL (12.0-15.5); LYMPH # 4.3 x10^3/uL (1.0-4.8); LYMPH % 35 % (24-48); MEAN CORPUSCULAR HEMOGLOBIN 28 pg (25-35); MEAN CORPUSCULAR HGB CONC 33 g/dL (31-37); MEAN CORPUSCULAR VOLUME 86 fL (79-100); MONO # 0.9 x10^3/uL (0.0-1.1); MONO % 8 % (0-9); NEUT # 6.6 x10^3/uL (1.8-7.7); NEUT % 54 % (31-73); PLATELET COUNT 306 x10^3/uL (140-400); RED BLOOD COUNT 4.43 x10^6/uL (3.50-5.40); RED CELL DISTRIBUTION WIDTH 14.5 % (11.5-14.5); WHITE BLOOD COUNT 12.2 x10^3/uL (4.0-11.0)
[2021-01-13 02:26] LABS: CREATININE 0.7 mg/dL (0.6-1.0); GFR 89.3
[2021-01-13] MEDS ORDERED: CONTRAST GIVEN. MC PRN (02:45)
[2021-01-13] MEDS ORDERED: IOHEXOL 300 MG/ML 100ML VIAL. IV ONE (03:00)
--- NOTE | 2021-01-13 03:18 | RAD ---
CT NECK SOFT TISSUE WITH IV CONTRAST History: Left neck pain, swelling, odynophagia. Comparison: None. Technique: CT of the neck with intravenous contrast. Findings: Mucosa: Relative prominence of the adenoidal and pharyngeal lymphoid tissue. No mass in the nasal cav ity, nasopharynx, oral cavity, oropharynx, larynx, hypopharynx, or proximal trachea/esophagus. Oral cavity is obscured by dental artifact. Glands: Normal bilateral parotid, submandibular, and thyroid glands. Nodes: No pathologically enlarged or necrotic cervical lymph nodes. Vessels: Vascular structures are patent. No carotid space mass. 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 Other: No suspicious lesion in the lung apices. Impression: 1. No adenopathy, mass or abscess identified in the neck. Symmetrically prominent adenoidal and phar yngeal tonsillar lymphoid tissue may be reactive. 2. 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 ------ Exposure: One or more of the following individualized dose reduction techniques were utilized for thi s examination: 1. Automated exposure control 2. Adjustment of the mA and/or kV according to patient size 3. Use of iterative reconstruction technique. Electronically signed by: Elpidio Curry MD (01/13/2021 3:16 AM) [id number]
[2021-01-13 04:11] VITALS: BP 169/75
[2021-01-13] MEDS ORDERED: HYDR-2761 PO (04:23)
== END 2021-01-13 04:45 | disposition home or self-care (01) ==
LOC: ER 23:55
DX: M54.2 Cervicalgia (principal); J02.9 Acute pharyngitis, unspecified; R13.10 Dysphagia, unspecified; E11.65 Type 2 diabetes mellitus with hyperglycemia; I10 Essential (primary) hypertension; G43.909 Migraine, unspecified, not intractable, without status migrainosus
CPT/HCPCS: 36415; 70491; 80048; 81001; 81025; 85025; 87070; 87880; 96374; 99285; J2270; Q9967

== ENCOUNTER 2021-02-14 18:06 | Emergency (ER) | payer OTHER ==
[~2021-02-14] VITALS: Ht 152.4 cm; Wt 72.7 kg
[2021-02-14 19:40] VITALS: BP 170/94
[2021-02-14] MEDS ORDERED: IV NORMAL SALINE 1000ML BAG 1,000 ML IV ONE (20:30)
[2021-02-14] MEDS ORDERED: DEXAMETHASONE SOD PHOS 20 MG/5 ML VIAL. IV ONE (20:30)
[2021-02-14] MEDS ORDERED: diphenhydrAMINE 50 MG/ML VIAL IVP ONE (20:30)
[2021-02-14] MEDS ORDERED: KETOROLAC 30 MG/ML VIAL. IVP ONE (20:30)
[2021-02-14] MEDS ORDERED: PROCHLORPERAZINE 10 MG/2 ML VIAL. IV ONE (20:30)
[2021-02-14 20:37] LABS: BASO # 0.1 x10^3/uL (0.0-0.2); BASO % 1 % (0-3); EOS # 0.2 x10^3/uL (0.0-0.7); EOS % 3 % (0-3); HEMATOCRIT 42.5 % (36.0-47.0); LYMPH # 3.3 x10^3/uL (1.0-4.8); LYMPH % 34 % (24-48); MEAN CORPUSCULAR HEMOGLOBIN 28 pg (25-35); MEAN CORPUSCULAR HGB CONC 33 g/dL (31-37); MEAN CORPUSCULAR VOLUME 86 fL (79-100); MONO # 0.7 x10^3/uL (0.0-1.1); MONO % 7 % (0-9); NEUT # 5.3 x10^3/uL (1.8-7.7); NEUT % 55 % (31-73); PLATELET COUNT 321 x10^3/uL (140-400); RED BLOOD COUNT 4.95 x10^6/uL (3.50-5.40); RED CELL DISTRIBUTION WIDTH 14.4 % (11.5-14.5); WHITE BLOOD COUNT 9.7 x10^3/uL (4.0-11.0)
[2021-02-14 20:47] LABS: CALCIUM 8.8 mg/dL (8.5-10.1); CREATININE 0.8 mg/dL (0.6-1.0); GFR 76.6; POTASSIUM 3.7 mmol/L (3.5-5.1)
[2021-02-14 20:53] LABS: ALBUMIN 3.2 g/dL (3.4-5.0); ALBUMIN/GLOBULIN RATIO 0.7 (1.0-1.7); TOTAL BILIRUBIN 0.2 mg/dL (0.2-1.0); TOTAL PROTEIN 8.1 g/dL (6.4-8.2)
--- NOTE | 2021-02-14 21:09 | PHYS DOC ---
Past Medical History Past Medical History: Diabetes-Type II, Hypertension, Kidney Stone, Migraines Additional Past Medical Histor: HEADACHES, K STONE Past Surgical History: Appendectomy Additional Past Surgical Histo: KIDNEY STONE Smoking Status: Never Smoker Alcohol Use: None Drug Use: None General Adult EDM: Chief Complaint: HEADACHE HPI: HPI: Patient is a 50 year old female who presents with migraine headache for 2 days with photophobia. She is been taking Tylenol at home without relief. Denies nausea, vomiting, diarrhea, fever, neck stiffness, neck pain, back pain, recent illness, chest pain, shortness of air, abdominal pain, focal weakness, blurred vision. She states that she does get migraines and this feels like her usual migraine. She has a history of diabetes, headache, hypertension, kidney stone, appendectomy. Rates her pain a 10 out of 10 at this time. Review of Systems: Review of Systems: Constitutional: Denies fever or chills. [] Eyes: Denies change in visual acuity. + Photo phobia [] HENT: Denies nasal congestion or sore throat. [] Respiratory: Denies cough or shortness of breath. [] Cardiovascular: Denies chest pain or edema. [] GI: Denies abdominal pain, nausea, vomiting, bloody stools or diarrhea. [] : Denies dysuria. [] Musculoskeletal: Denies back pain or joint pain. [] Integument: Denies rash. [] Neurologic: + headache, denies focal weakness or sensory changes. Endocrine: Denies polyuria or polydipsia. [] Lymphatic: Denies swollen glands. [] Psychiatric: Denies depression or anxiety. [] Heart Score: C/O Chest Pain: No Current Medications: Current Medications Medications (Trade) Dose Ordered Sig/Ministerio Start Time Stop Time Status Last Admin Dose Admin Dexamethasone Sodium Phosphate (Decadron) 10 mg 1X ONCE 02/14/21 20:30 02/14/21 20:31 DC 02/14/21 20:30 10 MG Diphenhydramine HCl (Benadryl) 25 mg 1X ONCE 02/14/21 20:30 02/14/21 20:31 DC 02/14/21 20:30 25 MG Ketorolac Tromethamine (Toradol 30mg Vial) 30 mg 1X ONCE 02/14/21 20:30 02/14/21 20:31 DC 02/14/21 20:30 30 MG Prochlorperazine Edisylate (Compazine) 10 mg 1X ONCE 02/14/21 20:30 02/14/21 20:31 DC 02/14/21 20:30 10 MG Sodium Chloride 1,000 ml @ 1,000 mls/hr 1X ONCE 02/14/21 20:30 02/14/21 21:29 02/14/21 20:30 1,000 MLS/HR Allergies: Allergies: Allergies Coded Allergies Type Severity Reaction Last Updated Verified No Known Drug Allergies 06/30/20 No Physical Exam: PE: Constitutional: Well developed, well nourished, no acute distress, non-toxic appearance. [] HENT: Normocephalic, atraumatic, bilateral external ears normal, oropharynx moist, no oral exudates, nose normal. [] Eyes: PERRLA, EOMI, conjunctiva normal, no discharge. Photophobia [] Neck: Normal range of motion, no tenderness, supple, no stridor. [] Cardiovascular:Heart rate tachycardia regular rhythm, no murmur [] Lungs & Thorax: Bilateral upper breath sounds clear and lower diminished to auscultation [] Abdomen: Bowel sounds normal, soft, no tenderness, no masses, no pulsatile masses. [] Skin: Warm, dry, no erythema, no rash. [] Back: No tenderness, no CVA tenderness. [] Extremities: No tenderness, no cyanosis, no clubbing, ROM intact, no edema. [] Neurologic: Alert and oriented X 2, normal motor function, normal sensory function, no focal deficits noted. [] Psychologic: Affect normal, judgement normal, mood normal. [] Current Patient Data: Labs: Laboratory Tests Test 02/14/21 20:30 White Blood Count 9.7 x10^3/uL (4.0-11.0) Red Blood Count 4.95 x10^6/uL (3.50-5.40) Hemoglobin 14.0 g/dL (12.0-15.5) Hematocrit 42.5 % (36.0-47.0) Mean Corpuscular Volume 86 fL (79-100) Mean Corpuscular Hemoglobin 28 pg (25-35) Mean Corpuscular Hemoglobin Concent 33 g/dL (31-37) Red Cell Distribution Width 14.4 % (11.5-14.5) Platelet Count 321 x10^3/uL (140-400) Neutrophils (%) (Auto) 55 % (31-73) Lymphocytes (%) (Auto) 34 % (24-48) Monocytes (%) (Auto) 7 % (0-9) Eosinophils (%) (Auto) 3 % (0-3) Basophils (%) (Auto) 1 % (0-3) Neutrophils # (Auto) 5.3 x10^3/uL (1.8-7.7) Lymphocytes # (Auto) 3.3 x10^3/uL (1.0-4.8) Monocytes # (Auto) 0.7 x10^3/uL (0.0-1.1) Eosinophils # (Auto) 0.2 x10^3/uL (0.0-0.7) Basophils # (Auto) 0.1 x10^3/uL (0.0-0.2) Maternal Serum HCG Beta Subunit < 1 mIU/mL (0-5) Sodium Level 141 mmol/L (136-145) Potassium Level 3.7 mmol/L (3.5-5.1) Chloride Level 103 mmol/L (98-107) Carbon Dioxide Level 27 mmol/L (21-32) Anion Gap 11 (6-14) Blood Urea Nitrogen 7 mg/dL (7-20) Creatinine 0.8 mg/dL (0.6-1.0) Estimated GFR (Cockcroft-Gault) 76.6 BUN/Creatinine Ratio 9 (6-20) Glucose Level 134 mg/dL (70-99) H Calcium Level 8.8 mg/dL (8.5-10.1) Total Bilirubin 0.2 mg/dL (0.2-1.0) Aspartate Amino Transferase (AST) 14 U/L (15-37) L Alanine Aminotransferase (ALT) 37 U/L (14-59) Alkaline Phosphatase 76 U/L (46-116) Total Protein 8.1 g/dL (6.4-8.2) Albumin 3.2 g/dL (3.4-5.0) L Albumin/Globulin Ratio 0.7 (1.0-1.7) L Laboratory Tests 02/14/21 20:30 Laboratory Tests 02/14/21 20:30 Vital Signs: Vital Signs Date Time Temp Pulse Resp B/P (MAP) Pulse Ox O2 Delivery O2 Flow Rate FiO2 02/14/21 19:40 97.3 96 14 170/94 (119) 96 Room Air 97.3 EKG: EKG: [] Radiology/Procedures: Radiology/Procedures: [] Impression: [facility] [address] [place] [address] IMAGING REPORT Signed PATIENT: JUDITH STOREY ACCOUNT: [id number] : 1970 LOCATION: ER AGE: 50 SEX: F EXAM STATUS: REG ER ORD. PHYSICIAN: NOLA JIM APRN REASON: headache PROCEDURE: CT HEAD WO CONTRAST CT HEAD/BRAIN WO History: Headache. Comparison: 01/05/2017. Technique: Noncontrast CT imaging was performed of the head. Findings: No intracranial hemorrhage. No mass effect. No hydrocephalus. No evidence of acute territorial infarction. Imaged orbits are unremarkable. Imaged paranasal sinuses and mastoid air cells are clear. The scalp and calvarium are unremarkable. Impression: 1. No acute intracranial abnormality. ----- Exposure: One or more of the following individualized dose reduction techniques were utilized for this examination: 1. Automated exposure control 2. Adjustment of the mA and/or kV according to patient size 3. Use of iterative reconstruction technique. Electronically signed by: Elpidio Myers MD (02/14/2021 9:51 PM) [facility] DICTATED and SIGNED BY: ELPIDIO MYERS MD DATE: 02/14/21 [id number] Course & Med Decision Making: Course & Med Decision Making Pertinent Labs and Imaging studies reviewed. (See chart for details) See HPI. Alert and oriented x4. Ambulatory steady gait. Speaks in full clear sentences. No nuchal rigidity. PERRLA. Moving all extremities equally with equal strengths. Patient is given Benadryl, Compazine, Toradol, Decadron and a normal saline bolus. Patient states she is feeling much better. Patient states she is ready to go home. [] Dragon Disclaimer: Dragon Disclaimer: This electronic medical record was generated, in whole or in part, using a voice recognition dictation system. Departure Departure Impression: Primary Impression: Migraine Qualified Codes: G43.909 - Migraine, unspecified, not intractable, without status migrainosus Disposition: HOME / SELF CARE / HOMELESS Condition: STABLE Referrals: DENG ROOT MD (PCP) Patient Instructions: Migraine Headache Additional Instructions: Follow-up with primary care provider. Drink plenty of fluids. If begin vomiting or having severe headache return emergency room. NOLA JIM TRACK OILER Feb 14, 2021 21:09
--- NOTE | 2021-02-14 21:53 | RAD ---
CT HEAD/BRAIN WO History: Headache. Comparison: 01/05/2017. Technique: Noncontrast CT imaging was performed of the head. Findings: No intracranial hemorrhage. No mass effect. No hydrocephalus. No evidence of acute territorial infar ction. Imaged orbits are unremarkable. Imaged paranasal sinuses and mastoid air cells are clear. The scalp a nd calvarium are unremarkable. Impression: 1. No acute intracranial abnormality. ----- Exposure: One or more of the following individualized dose reduction techniques were utilized for thi s examination: 1. Automated exposure control 2. Adjustment of the mA and/or kV according to patient size 3. Use of iterative reconstruction technique. Electronically signed by: Elpidio Curry MD (02/14/2021 9:51 PM) [facility]
== END 2021-02-14 22:30 | disposition home or self-care (01) ==
LOC: ER 18:06
DX: G43.909 Migraine, unspecified, not intractable, without status migrainosus (principal); E11.9 Type 2 diabetes mellitus without complications; I10 Essential (primary) hypertension
CPT/HCPCS: 36415; 70450; 80053; 84702; 85025; 96361; 96374; 96375; 99284; J0780; J1100; J1200; J1885; J7030